=== PATIENT | male | born 1980 | race Caucasian/White ===

== ENCOUNTER 2022-02-13 22:10 | Outpatient (CLI) | payer BC, SELFPAY ==
[2022-02-13 22:22] LABS: Absolute Lymphocyte Count 2.06 X10^3/uL (0.83-4.51); Absolute Neutrophil Count 5.8 X10^3/uL (2.0-7.7); Basophil# 0.03 X10^3/uL; Basophil% 0.3 % (0-1); Eosinophil# 0.14 X10^3/uL; Eosinophils% 1.6 % (0-5); Hematocrit 50.5 % (40-54); Hemoglobin 17.2 g/dL (13.0-16.5); Lymphocyte # 2.06 X10^3/ul (0.83-4.51); Lymphocyte % 23.7 % (19-41); Mean Corp Hgb Conc 34.1 g/dL (32-36); Mean Corpuscular Hgb 29.7 pg (27.0-32.0); Mean Corpuscular Volume 87.1 fL (80-94); Mean Platelet Vol. 10.7 fl (6.2-12.0); Monocyte# 0.62 X10^3/uL; Monocyte% 7.1 % (0-10); NRBC Flagged by Analyzer 0 % (0-5); Platelet Count 260 K/mm3 (150-450); RBC Distribution Width CV 12.5 % (11.6-14.6); RBC Distribution Width SD 39.7 fl (35.1-43.9); White Blood Count 8.7 K/mm3 (4.4-11.0)
[2022-02-13 22:46] LABS: ALB/GLOB Ratio 1.1 RATIO (0.9-2.4); AST(SGOT) 22 U/L (15-37); Alanine Aminotransfer ALT/SGPT 67 U/L (16-61); Albumin, Serum 4.2 g/dL (3.2-5.0); Alkaline Phosphatase 85 U/L (45-117); Amylase 50 U/L (25-115); Anion Gap 5 (5-15); BUN 9 mg/dL (7-18); BUN/Creat Ratio 10.4 RATIO (10-20); CRP, High Sensitivity Cardiac 0.63 mg/L; Calcium,Total 9.1 mg/dL (8.5-10.1); Chloride 104 mmol/L (98-107); Creatinine, Serum 0.86 mg/dL (0.70-1.30); EST Glomerular Filtration Rate 103 mL/min (>60); Est Glom Filt Rate - Afr Amer 125 mL/min (>60); Globulin 3.7 g/dL (2.2-4.2); Glucose 100 mg/dL (74-106); Lipase 105 U/L (73-393); Protein, Total 7.9 g/dL (6.4-8.2); Sodium Level 138 mmol/L (136-145)
== END 2022-02-13 23:59 | disposition home or self-care (01) ==
PROVIDERS: PCP Family Medicine; Visit Provider Nurse Practitioner
DX: R10.11 Right upper quadrant pain (principal)
CPT/HCPCS: 80053; 82150; 83690; 85025; 86141

== ENCOUNTER 2022-03-05 21:30 | Inpatient (IN) | payer BC, SELFPAY ==
[2022-03-05 21:31] VITALS: BP 137/83; PULSE 78; RESP 16; TEMP 35.7; O2SAT 97; BMI 30.2
[2022-03-05 21:33] VITALS: BP 137/83; PULSE 78; RESP 16; TEMP 35.7; O2SAT 97
--- NOTE | 2022-03-05 21:51 | EX.ED.DYSGE1 ---
HPI History of Present Illness Chief Complaint: Abn Labs Informant: patient Narrative Narrative: Is a 41-year-old male with no significant past medical history presenting with jaundice. Patient is for the past 2 years has had intermittent episodes of right upper quadrant/right thoracic back pain that radiates to his shoulder blade. It is worse when he eats fatty or fried foods. He notes today his urine seemed darker in color and then his sclera started to turn yellow. He is scheduled for right upper quadrant ultrasound but he saw his nurse practitioner who recommended he come to the emergency room for quicker evaluation. Patient states the pain is not severe at this time and has been much worse. He notes he has not eaten much today. Denies any weight loss. Denies any significant alcohol use. Denies any history of IV drug use. Denies a history of blood transfusion. No fever or chills. No night sweats. No changes bowel habits. No other complaints at this time. [facility] Medical History (Updated 03/06/22 @ 00:[address] Sabi Lomax DO) reattached fingers of the R hand Home Medications NK 03/05/22 [History Last Taken Unknown] Allergy/AdvReac Type Severity Reaction Status Date / Time No Known Allergies Allergy Verified 03/05/22 21:33 Family History Other Bleeding disorder Diabetes Hypertension Surgical History History of appendectomy Social History Smoking Status: Unknown if ever smoked ROS ROS ED Constitutional Constitutional ED: Denies chills, fever(s) or sweats Eyes Eyes: Reports other Details: Scleral icterus ; Denies blurry vision ENT ENT ED: Denies rhinorrhea or sore throat Cardiovascular Cardiovascular: Denies chest pain Respiratory/Chest Respiratory/Chest: Denies cough or dyspnea Gastrointestinal Gastrointestinal: Reports abdominal pain and nausea; Denies constipation, diarrhea, melena or vomiting Genitourinary Genitourinary ED: Denies dysuria or hematuria Musculoskeletal Musculoskeletal: Reports back pain; Denies arthralgias or myalgias Integumentary Denies rash Neurologic Neurologic: Denies headache(s) or weakness Psychiatric Psychiatric: Denies depression EXAM Physical Exam Const Vital Signs: 03/05/22 21:31 03/05/22 21:33 03/05/22 22:03 Temperature 96.3 F L 96.3 F L Temperature Source Temporal Temporal Pulse Rate 78 78 Respiratory Rate 16 16 Respiratory Effort Normal Non-Labored Respiratory Pattern Normal Blood Pressure 137/83 H 137/83 H Blood Pressure Mean 101 101 Pulse Ox 97 97 Oxygen Delivery Method Room Air Room Air Positive well nourished and well developed General Appearance ED: well developed HEENT Reports dry mucous membranes Negative for tenderness Mouth ED: Yes dry mucous membranes Mouth: dry mucous membranes Eyes PERRL and EOMs intact bilaterally General Eye ED: Yes scleral icterus Neck no lymphadenopathy and supple Chest Wall inspection of chest normal Resp normal respiratory effort and clear to auscultation bilaterally Cardio regular rate, regular rhythm and no murmurs GI normal to inspection, nondistended, normoactive bowel sounds, non-tender and no masses GI Narrative: Negative Gagnon sign Palpation: soft; Negative for tender or guarding Back/Spine no CVA tenderness Extremity normal to inspection General Extremety ED: Negative for edema or tenderness General Extremity: Negative for edema Neuro oriented x3 and CN's II-XII intact bilaterally Sensorium / Orientation: alert Psych mental status grossly normal Skin no rashes or lesions noted and no wounds MDM MDM MDM Narrative Medical decision making narrative: Patient is evaluated for worsening jaundice as well as continued back pain. No known medical history. Has been having what sounds like biliary colic off and on for the last 2 years. Denies any other risk factors for liver disease. Lab work is remarkable for transaminitis and elevated direct and mildly elevated indirect bilirubin. [place] screen is negative. Start having infectious symptoms including fever, chills or leukocytosis. No signs of liver failure with normal platelet counts. Ultrasound is concerning for choledocholithiasis with cholelithiasis. This fits patient's clinical picture. Case is discussed with Dr. Haddad as well as Dr. Shafer (for ERCP). Patient be admitted to the hospital service. He is given a dose of Toradol in the ER. Patient is given IV fluids as he did have elevated ketones on his urine earlier today. He admits decreased p.o. intake lately. Patient admitted to [facility] in stable condition. Lab Data Attestation: I reviewed the patient's lab results. Labs: Laboratory Results - last 24 hr 03/05/22 03/05/22 03/05/22 22:00 22:00 22:00 WBC 9.4 RBC 5.08 Hgb 15.1 Hct 44.5 MCV 87.6 MCH 29.7 MCHC 33.9 RDW Std Deviation 41.1 RDW Coeff of Chan 12.9 Plt Count 219 MPV 10.6 Immature Gran % (Auto) 0.300 Neut % (Auto) 79.1 H Lymph % (Auto) 10.6 L [place] % (Auto) 8.5 Eos % (Auto) 1.2 Baso % (Auto) 0.3 Absolute Neuts (auto) 7.4 Absolute Lymphs (auto) 1.00 Nucleated RBC % 0 Sodium 138 Potassium 3.5 Chloride 105 Carbon Dioxide 26.0 Anion Gap 7 BUN 11 Creatinine 0.91 Estim Creat Clear Calc 124.20 Est GFR (MDRD) Af Amer 118 Est GFR (MDRD) Non-Af 98 BUN/Creatinine Ratio 12.1 Glucose 96 Calcium 8.9 Ferritin 792 H Total Bilirubin 7.40 H Direct Bilirubin 4.56 H AST 270 H ALT 691 H Alkaline Phosphatase 173 H Total Protein 7.3 Albumin 3.7 Globulin 3.6 Lipase 134 Monoscreen Negative Radiography Diagnostic Testing: Clinical Impression(s) from Imaging Studies Gallbladder Ultrasound 03/05/22 21:52 IMPRESSION: Choledocholithiasis and cholelithiasis. Mildly dilated proximal common duct at the nickie. Incompletely visualized pancreas. Electronically Signed: Debbie Kyle MD at 23:35 EDT Reading Location ID and State: [address] [place] [address] Tel , Service support , ADDENDUM: 03/05/22 [id number] IMPRESSION: Choledocholithiasis and cholelithiasis. Mildly dilated proximal common duct at the nickie. Incompletely visualized pancreas. N.B. : Tex Gutierrez MD, confirmed on 03/05/2022 23:41:49 (ET) that the healthcare facility has received the radiology report. Electronically Signed: Debbie Kyle MD at 23:35 EDT Reading Location ID and State: [facility] / [place] Tel , Service support , Discharge Plan Triage Chief Complaint: Abn Labs ED Provider: Sabi Lomax Dx/Rx/DC Orders Clinical Impression: Jaundice, Choledocholithiasis with cholecystitis Primary Care Provider: Jessica Ricardo NP Disposition Disposition: Acute Care Hospital [facility]
--- NOTE | 2022-03-05 21:52 | US_ITS ---
ACR Level 3 findings have been noted. An addendum which confirms receipt of the report will follow. EXAM: US ABDOMEN LIMITED, RIGHT UPPER QUADRANT CLINICAL INDICATION: PAIN, jaundice TECHNIQUE: Real-time ultrasound of the right upper quadrant with image documentation. This report was created using Switchcam report generation technology. COMPARISON: None. FINDINGS: LIVER: The liver is 17.5 cm in length, upper limits of normal. There is normal echotexture. No intrahepatic biliary ductal dilation. GALLBLADDER: Small fold in the distal gallbladder. Mildly distended gallbladder with one versus 2 shadowing stones in the fundus, overall size 2.4 cm x 1.9 cm x 1.2 cm, presumed cholelithiasis. The gallbladder is 10 cm in length. Normal 2.8 mm gallbladder wall. No pericholecystic fluid. Negative sonographic Gagnon''s sign. COMMON BILE DUCT: Mildly dilated common duct measuring 1.1 cm at the nickie. Choledocholithiasis with 1 cm x 0.9 cm stone in the proximal common duct just inferior to the nickie. PANCREAS: The pancreas is largely obscured by bowel gas, a small section of the head is seen. RIGHT KIDNEY: Right kidney 11.5 cm x 7.2 cm x 6.5 cm. No hydronephrosis. No shadowing calculus. No focal lesion or perinephric collection is demonstrated. US/Gallbladder IMPRESSION: Choledocholithiasis and cholelithiasis. Mildly dilated proximal common duct at the nickie. Incompletely visualized pancreas. Electronically Signed: Debbie Kyle MD at 23:35 EDT ,
[2022-03-05] MEDS: 0.9% Normal Saline 1,000 ML 999 ML IV (22:38)
[2022-03-05 22:41] LABS: Absolute Neutrophil Count 7.4 X10^3/uL (2.0-7.7); Basophil# 0.03 X10^3/uL; Basophil% 0.3 % (0-1); Eosinophil# 0.11 X10^3/uL; Eosinophils% 1.2 % (0-5); Hematocrit 44.5 % (40-54); Hemoglobin 15.1 g/dL (13.0-16.5); Lymphocyte % 10.6 % (19-41); Mean Corp Hgb Conc 33.9 g/dL (32-36); Mean Corpuscular Hgb 29.7 pg (27.0-32.0); Mean Corpuscular Volume 87.6 fL (80-94); Mean Platelet Vol. 10.6 fl (6.2-12.0); Monocyte% 8.5 % (0-10); NRBC Flagged by Analyzer 0 % (0-5); Neutrophil # 7.43 X10^3/uL (2.7-7.7); Neutrophil % 79.1 % (47-70); Platelet Count 219 K/mm3 (150-450); RBC Distribution Width CV 12.9 % (11.6-14.6); RBC Distribution Width SD 41.1 fl (35.1-43.9); Red Blood Count 5.08 M/mm3 (4.6-6.2); White Blood Count 9.4 K/mm3 (4.4-11.0)
[2022-03-05 23:04] LABS: AST(SGOT) 270 U/L (15-37); Alanine Aminotransfer ALT/SGPT 691 U/L (16-61); Albumin, Serum 3.7 g/dL (3.2-5.0); Alkaline Phosphatase 173 U/L (45-117); Anion Gap 7 (5-15); BUN 11 mg/dL (7-18); BUN/Creat Ratio 12.1 RATIO (10-20); Bilirubin, Direct 4.56 mg/dL (0.00-0.30); Calcium,Total 8.9 mg/dL (8.5-10.1); Chloride 105 mmol/L (98-107); Creatinine, Serum 0.91 mg/dL (0.70-1.30); EST Glomerular Filtration Rate 98 mL/min (>60); Est Glom Filt Rate - Afr Amer 118 mL/min (>60); Ferritin 792 ng/mL (26-388); Globulin 3.6 g/dL (2.2-4.2); Glucose 96 mg/dL (74-106); Lipase 134 U/L (73-393); Potassium 3.5 mmol/L (3.5-5.1); Protein, Total 7.3 g/dL (6.4-8.2); Sodium Level 138 mmol/L (136-145)
[2022-03-05 23:06] LABS: Internal QC Validated? YES +Cl - CLEAR BKGD; Monotest Negative (Negative)
[2022-03-06] VITALS (11 sets, daily range): BP systolic 114–153; BP diastolic 66–87; PULSE 61–98; RESP 14–19; TEMP 36.3–37.1; O2SAT 96–99; BMI 29.7
--- NOTE | 2022-03-06 00:16 | PCM.HP.STD ---
Documented by User: VALDEZ France 03/06/22 00:35 HPI - General General Date of Admission: 03/06/22 Date of Service: 03/06/22 Chief Complaint: Jaundice HPI Narrative ODALYS CHANCE, is a 41 M who presents with complaints of jaundice and mild right upper quadrant pain. Patient states that he has experienced intermittent biliary colic over the past two years and has been receiving outpatient workup. Patient denies any other medical history. patient reports this is his first time experiencing jaundice. [facility] Medical History reattached fingers of the R hand Home Medications NK 03/05/22 [History Last Taken Unknown] Allergy/AdvReac Type Severity Reaction Status Date / Time No Known Allergies Allergy Verified 03/05/22 21:33 Family History Other Bleeding disorder Diabetes Hypertension Surgical History History of appendectomy Social History (Updated 03/06/22 @ 00:21 by VALDEZ France) Smoking Status: Unknown if ever smoked alcohol intake: current alcohol intake frequency: a few times a month ROS Constitutional Constitutional: Denies anorexia, chills, fatigue, fever(s) or weakness Cardiovascular Cardiovascular: Denies chest pain, edema, palpitations or syncope Respiratory/Chest Respiratory/Chest: Denies cough, shortness of breath at rest, shortness of breath with exertion or wheezing Gastrointestinal Gastrointestinal: Reports abdominal pain; Denies constipation, diarrhea, nausea or vomiting Genitourinary Genitourinary: Denies dysuria Musculoskeletal Musculoskeletal: Denies back pain, extremity pain, joint pain or joint stiffness Integumentary Integumentary: Reports jaundice; Denies dry skin Neurologic Neurologic: Denies abnormal gait, abnormal speech, confusion, dizziness or focal weakness Psychiatric Psychiatric: Denies anxiety or depression Endocrine Endocrinology: Denies change in body appearance Hematologic/Lymphatic Hematologic/Lymphatic: Denies anemia, easy bleeding or easy bruising Vital Signs Vital Signs Vital Signs: 03/05/22 21:31 03/05/22 21:33 03/05/22 22:03 Temperature 96.3 F L 96.3 F L Temperature Source Temporal Temporal Pulse Rate 78 78 Respiratory Rate 16 16 Respiratory Effort Normal Non-Labored Respiratory Pattern Normal Blood Pressure 137/83 H 137/83 H Blood Pressure Mean 101 101 Pulse Ox 97 97 Oxygen Delivery Method Room Air Room Air Weight Weight: 235 lb Body Mass Index (BMI) 30.2 Physical Exam Const alert, oriented x3 and no apparent distress General Appearance: cooperative HEENT normocephalic and head/scalp atraumatic Eyes conjunctivae normal Eyes Narrative: B/L scleral icterus Neck no lymphadenopathy and supple General: trachea midline Resp normal respiratory effort, normal air movement and clear to auscultation bilaterally Cardio regular rate, regular rhythm, S1 normal heart sound, S2 normal heart sound and peripheral pulses 2+ throughout GI normal to inspection, nondistended, normoactive bowel sounds and soft to palpation Palpation: tender RUQ Extremity normal capillary refill and no clubbing, cyanosis or edema General Extremity: no tenderness to palpation of joints or extremities Skin General Skin Exam: no breakdown, turgor normal and jaundice Lesions: no lesions Rashes: no rashes Neuro no focal motor deficits and no sensory deficits noted Motor Exam: Negative for general weakness Psych thought process normal, cooperative and affect normal Appearance: appropriate Results Lab / Micro Data Result Diagrams: 03/05/22 22:00 03/05/22 22:00 Labs: Laboratory Results - last 24 hr 03/05/22 22:00: WBC 9.4, RBC 5.08, Hgb 15.1, Hct 44.5, MCV 87.6, MCH 29.7, MCHC 33.9, RDW Std Deviation 41.1, RDW Coeff of Chan 12.9, Plt Count 219, MPV 10.6, Immature Gran % (Auto) 0.300, Neut % (Auto) 79.1 H, Lymph % (Auto) 10.6 L, [place] % (Auto) 8.5, Eos % (Auto) 1.2, Baso % (Auto) 0.3, Absolute Neuts (auto) 7.4, Absolute Lymphs (auto) 1.00, Nucleated RBC % 0 03/05/22 22:00: Sodium 138, Potassium 3.5, Chloride 105, Carbon Dioxide 26.0, Anion Gap 7, BUN 11, Creatinine 0.91, Estim Creat Clear Calc 124.20, Est GFR (MDRD) Af Amer 118, Est GFR (MDRD) Non-Af 98, BUN/Creatinine Ratio 12.1, Glucose 96, Calcium 8.9, Ferritin 792 H, Total Bilirubin 7.40 H, Direct Bilirubin 4.56 H, AST 270 H, ALT 691 H, Alkaline Phosphatase 173 H, Total Protein 7.3, Albumin 3.7, Globulin 3.6, Lipase 134 03/05/22 22:00: Monoscreen Negative Radiology Impression Gallbladder Ultrasound 03/05/22 21:52 IMPRESSION: Choledocholithiasis and cholelithiasis. Mildly dilated proximal common duct at the nickie. Incompletely visualized pancreas. Electronically Signed: Debbie Kyle MD at 23:35 EDT , ADDENDUM: 03/05/22 [id number] IMPRESSION: Choledocholithiasis and cholelithiasis. Mildly dilated proximal common duct at the nickie. Incompletely visualized pancreas. N.B. : Tex Gutierrez MD, confirmed on 03/05/2022 23:41:49 (ET) that the healthcare facility has received the radiology report. Electronically Signed: Debbie Kyle MD at 23:35 EDT , Assessment & Plan Assessment/Plan (1) Choledocholithiasis with cholecystitis: (2) Jaundice: (3) RUQ abdominal pain: PLAN: 1. RUQ abdominal pain and jaundice, likely secondary to choledocholithiasis with cholecystitis -Admit to med surg -Consult GI, case discussed with Dr. Shafer by ER physician -Consult General Surgery, case discussed with Dr. Haddad by ER physician -CBC and CMP daily -Patient NPO -PT/INR ordered for am -IV NS 125ml/hr -PRN toradol and morphine ordered for pain management -Gallbladder ultrasound demonstrates Choledocolithiasis and cholelithiasis. Mildly dilated proximal common duct at the nickie. Incompletely visualized pancreas. -Negative monoscreen -Viral hepatitis panel pending 2. Elevated Liver Enzymes -See #1 -Daily CMP ordered DVT prophylaxis- SCD's This patient was seen by VALDEZ France under the supervision of Dr. Davis. 30 minutes was spent in the clinical coordination of this patient's care. Documented by User: Dr. Ulises Davis MD 03/06/22 00:52 HPI - General General Date of Admission: 03/06/22 [facility] Medical History reattached fingers of the R hand Home Medications NK 03/05/22 [History Last Taken Unknown] Allergy/AdvReac Type Severity Reaction Status Date / Time No Known Allergies Allergy Verified 03/05/22 21:33 Family History Other Bleeding disorder Diabetes Hypertension Surgical History History of appendectomy Social History (Updated 03/06/22 @ 00:21 by VALDEZ France) Smoking Status: Unknown if ever smoked alcohol intake: current alcohol intake frequency: a few times a month Results Lab / Micro Data Result Diagrams: 03/05/22 22:00 03/05/22 22:00 Charges/Coding Addendum Addendum: Patient was seen and examined independently. I agree with assessment and plan by VALDEZ France. Patient is a 41-year-old male with a significant history of former tobacco abuse and appendectomy who presents emergency department with a 3-week history of progressively worsening jaundice. Associated with his symptoms is sclera icterus; dark urine and anorexia. Further, he reports back pain; at his entire back, across his shoulder blades and right flank pain. Also he reports a pain across his entire chest that increases with lying down. Physical exam: General: Well-nourished, well-developed. Head: Normocephalic, atraumatic, no tenderness Eyes: Mild scleral icterus. Vision is grossly intact. EOMI ENT, no trauma, moist mucous membranes, no rhinorrhea Neck: Nontender, full range of motion, no spinal tenderness, deformities, step-off CVS: Regular rate and rhythm. S1-S2 present. No murmur, gallop or rub. Respiratory : clear to auscultation bilaterally, chest wall nontender, no wheezing Abdomen: Soft, nontender, nondistended, normal bowel sounds, no masses : Deferred Back: Nontender, no CVA tenderness, no midline spinal tenderness, deformities, step-offs Extremities: Nontender full range of motion, no trauma Skin: Mild jaundice. Normal color, no trauma, abrasions Neuro: Alert, oriented, cranial nerves II through XII grossly intact. Psychiatry: Normal mood. Normal affect. Not depressed. Not anxious. Acute choledocholithiasis and cholelithiasis US [place] was visualized and independently interpreted and agree with radiologist interpreattion of Choledocholithiasis and cholelithiasis. Mildly dilated proximal common duct at the nickie. Review of ED labs showed elevated ferritin of 792; total bilirubin was 7.4. Diarrhea bilirubin was 4.56. Of note his bilirubin on 02/13/2022 was 2.10. On presentation AST was elevated at 270; ALT was elevated at 691; alkaline phosphatase was elevated at 173. Review of record showed that on 02/13/2022 his AST was 22; ALT was 67 and alkaline phosphatase was 85. Acute hepatitis panel ordered emergency department is pending. [place] screen was negative. Supportive treatment with IV fluids; IV Zofran; IV toradol and IV morphine. Emergency Department doctor discussed the case with general surgery and GI. General surgery and GI consult. N.p.o. after midnight. CBC showed normal white count; no bandemia. Patient has neutrophilia with neutrophil count of 79.1 percent; and lymphopenia with lymphocyte count of 10.6 percent. Trend CBC and CMP DVT prophylaxis: SCD ordered. Visit Charges Inpatient E&M: 32279 Init Hosp L3
--- NOTE | 2022-03-06 00:28 | ED.RN ---
PATIENT TAKEN UP BEFORE THIS NURSE ABLE TO PULL TORADOL
[2022-03-06] MEDS: 0.9% Saline Lock 10 ML Syringe IV (01:23)
[2022-03-06] MEDS: Ketorolac 15 MG/ML Vial IV (01:24)
[2022-03-06] MEDS: 0.9% Normal Saline 1,000 ML 125 ML IV ×4 (01:28→18:37)
--- NOTE | 2022-03-06 06:00 | EKG12_ITS ---
Test Reason : AM EKG PRE OP Blood Pressure : / mmHG Vent. Rate : 063 BPM Atrial Rate : 063 BPM P-R Int : 140 ms QRS Dur : 096 ms QT Int : 410 ms P-R-T Axes : 043 074 035 degrees QTc Int : 419 ms Normal sinus rhythm with sinus arrhythmia Normal ECG Confirmed by GREGORIA HO, CLARA ([id number]), city editor MACKENZIE BENITEZ ([id number]) on 03/07/2022 10:03:07 AM Referred By: Confirmed By:CLARA KINNEY MD
[2022-03-06 06:18] LABS: Absolute Lymphocyte Count 1.16 X10^3/uL (0.83-4.51); Absolute Neutrophil Count 4.2 X10^3/uL (2.0-7.7); Basophil# 0.02 X10^3/uL; Basophil% 0.3 % (0-1); Eosinophil# 0.16 X10^3/uL; Eosinophils% 2.5 % (0-5); Hematocrit 42.3 % (40-54); Hemoglobin 14.5 g/dL (13.0-16.5); Lymphocyte # 1.16 X10^3/ul (0.83-4.51); Lymphocyte % 18.5 % (19-41); Mean Corp Hgb Conc 34.3 g/dL (32-36); Mean Corpuscular Hgb 29.7 pg (27.0-32.0); Mean Corpuscular Volume 86.7 fL (80-94); Monocyte# 0.72 X10^3/uL; Monocyte% 11.5 % (0-10); NRBC Flagged by Analyzer 0 % (0-5); Neutrophil # 4.21 X10^3/uL (2.7-7.7); Platelet Count 181 K/mm3 (150-450); RBC Distribution Width CV 12.9 % (11.6-14.6); RBC Distribution Width SD 41.1 fl (35.1-43.9); Red Blood Count 4.88 M/mm3 (4.6-6.2); White Blood Count 6.3 K/mm3 (4.4-11.0)
[2022-03-06 06:26] LABS: Prothrombin Time (Protime)PT. 12.8 SECONDS (11.7-14.9)
[2022-03-06 07:02] LABS: ALB/GLOB Ratio 0.9 RATIO (0.9-2.4); AST(SGOT) 163 U/L (15-37); Alanine Aminotransfer ALT/SGPT 520 U/L (16-61); Albumin, Serum 3.1 g/dL (3.2-5.0); Alkaline Phosphatase 173 U/L (45-117); Anion Gap 6 (5-15); BUN 8 mg/dL (7-18); BUN/Creat Ratio 10.3 RATIO (10-20); Calcium,Total 8.3 mg/dL (8.5-10.1); Chloride 109 mmol/L (98-107); Creatinine, Serum 0.78 mg/dL (0.70-1.30); EST Glomerular Filtration Rate 116 mL/min (>60); Est Glom Filt Rate - Afr Amer 141 mL/min (>60); Globulin 3.3 g/dL (2.2-4.2); Glucose 81 mg/dL (74-106); Potassium 3.7 mmol/L (3.5-5.1); Protein, Total 6.4 g/dL (6.4-8.2); Sodium Level 138 mmol/L (136-145)
[2022-03-06] MEDS: Ondansetron 4 MG/2 ML Vial IV (07:36)
--- NOTE | 2022-03-06 07:59 | PCM.CONS.GEN ---
Assessment & Plan Assessment/Plan (1) Choledocholithiasis with cholecystitis: PLAN: Obstructive jaundice secondary to choledocholithiasis. He should undergo an ERCP with stone removal and possible stent placement. After that he should have a cholecystectomy. I will order a CT scan of the abdomen pelvis with prior to him undergoing an ERCP to get a look at his pancreas. He was explained alternatives, risk, benefits including not withstanding bleeding, infection, sepsis, perforation, need for emergency or . Have an ASA of 3. Recommend to keep n.p.o. No need for antibiotics at this time he will get it prior to his ERCP. He is not showing any signs at this time of a sending cholangitis. HPI Consult Data Date of Consult: 03/06/22 HPI Narrative HPI Narrative: ODALYS CHANCE, is a 41 M who presentsFrom home with worsening abdominal pain. He has a past medical history of gastroesophageal reflux disease resulting in esophageal stricture and food bolus status post emergent EGD with food impaction removal. He does not take any medicines for reflux disease. Over the last couple weeks he has been experiencing intermittent right upper quadrant pain. He did have lab work that showed elevated bilirubin of 2.1. He came into the hospital yesterday with worsening jaundice. He was covered to have a bilirubin of 7.4 and an AST and ALT of 163 and 520 and alkaline phosphatase 173. His albumin was 3.1. He does not take any medicines on a daily basis he has no history of blood transfusions. He has no other risk factors for acute hepatitis. He has no previous history of alcoholism or cirrhosis. He had an ultrasound in the ED that did not show common bile duct dilation of 1.1 cm with a 1 cm stone at the level of the nickie hepatis. [facility] Medical History Ex-smoker reattached fingers of the R hand Home Medications NK 03/05/22 [History Last Taken Unknown] Allergy/AdvReac Type Severity Reaction Status Date / Time No Known Allergies Allergy Verified 03/05/22 21:33 Family History Other Bleeding disorder Diabetes Hypertension Surgical History History of appendectomy Social History (Updated 03/06/22 @ 00:21 by Drea Landon NP-C) Smoking Status: Former smoker alcohol intake: current alcohol intake frequency: a few times a month ROS Review of Systems ROS Unobtainable: other Constitutional Constitutional: Denies fatigue, fever(s), poor appetite, weight gain or weight loss ENT HEENT: Denies mouth lesions Cardiovascular Cardiovascular: Denies abdominal bloating, abdominal edema or abdominal pain Respiratory/Chest Respiratory/Chest: Denies change in mental status, change in phlegm color, chest congestion or chest tightness Gastrointestinal Gastrointestinal: Reports abdominal pain and heartburn Genitourinary Genitourinary: Denies abdominal discomfort, burning urination or itching Musculoskeletal Musculoskeletal: Reports as per HPI; Denies muscle weakness or myalgias Integumentary Integumentary: Denies jaundice Neurologic Neurologic: Denies lack of coordination or weakness Psychiatric Psychiatric: Denies confusion, depression, memory loss, mood swings, paranoia or suicidal ideation Endocrine Endocrinology: Denies systems reviewed and no addt'l complaints, except as documented Hematologic/Lymphatic Hematologic/Lymphatic: Denies anemia, easy bleeding, easy bruising or lymphadenopathy Allergic/Immunologic Allergic/Immunologic: Denies systems reviewed and no addt'l complaints, except as documented Physical Exam Const alert General Appearance: cooperative Orientation / Consciousness: oriented to person HEENT hearing grossly normal bilaterally Head and Scalp: normal to inspection Face and Sinus: face symmetric Nose: external nose normal Mouth: oral and palatal mucosa normal Eyes conjunctivae normal General Eye: normal appearance of both eyes Neck full ROM General: normal visual inspection Lymph Lymphatic: no lymphadenopathy noted Chest inspection of chest normal and palpation of chest normal Chest: symmetrical chest wall rise Resp normal respiratory effort Effort and Inspection: able to speak in complete sentences Cardio regular rate GI non-distended Percussion: normal to percussion Rectal Exam: deferred Neuro Speech: speech normal Gait (Neuro): normal gait Lab / Micro Data Result Diagrams: 03/06/22 06:03 03/06/22 06:03 Labs: Laboratory Results - last 24 hr 03/05/22 22:00: WBC 9.4, RBC 5.08, Hgb 15.1, Hct 44.5, MCV 87.6, MCH 29.7, MCHC 33.9, RDW Std Deviation 41.1, RDW Coeff of Chan 12.9, Plt Count 219, MPV 10.6, Immature Gran % (Auto) 0.300, Neut % (Auto) 79.1 H, Lymph % (Auto) 10.6 L, Worth % (Auto) 8.5, Eos % (Auto) 1.2, Baso % (Auto) 0.3, Absolute Neuts (auto) 7.4, Absolute Lymphs (auto) 1.00, Nucleated RBC % 0 03/05/22 22:00: Sodium 138, Potassium 3.5, Chloride 105, Carbon Dioxide 26.0, Anion Gap 7, BUN 11, Creatinine 0.91, Estim Creat Clear Calc 124.20, Est GFR (MDRD) Af Amer 118, Est GFR (MDRD) Non-Af 98, BUN/Creatinine Ratio 12.1, Glucose 96, Calcium 8.9, Ferritin 792 H, Total Bilirubin 7.40 H, Direct Bilirubin 4.56 H, AST 270 H, ALT 691 H, Alkaline Phosphatase 173 H, Total Protein 7.3, Albumin 3.7, Globulin 3.6, Lipase 134 03/05/22 22:00: Monoscreen Negative 03/06/22 06:03: WBC 6.3, RBC 4.88, Hgb 14.5, Hct 42.3, MCV 86.7, MCH 29.7, MCHC 34.3, RDW Std Deviation 41.1, RDW Coeff of Chan 12.9, Plt Count 181, MPV 10.0, Immature Gran % (Auto) 0.200, Neut % (Auto) 67.0, Lymph % (Auto) 18.5 L, Worth % (Auto) 11.5 H, Eos % (Auto) 2.5, Baso % (Auto) 0.3, Absolute Neuts (auto) 4.2, Absolute Lymphs (auto) 1.16, Nucleated RBC % 0 03/06/22 06:03: PT 12.8, INR 1.0 03/06/22 06:03: Sodium 138, Potassium 3.7, Chloride 109 H, Carbon Dioxide 23.0, Anion Gap 6, BUN 8, Creatinine 0.78, Estim Creat Clear Calc 144.90, Est GFR (MDRD) Af Amer 141, Est GFR (MDRD) Non-Af 116, BUN/Creatinine Ratio 10.3, Glucose 81, Calcium 8.3 L, Total Bilirubin 7.30 H, AST 163 H, ALT 520 H, Alkaline Phosphatase 173 H, Total Protein 6.4, Albumin 3.1 L, Globulin 3.3, Albumin/Globulin Ratio 0.9 Radiology Impression Gallbladder Ultrasound 03/05/22 21:52 IMPRESSION: Choledocholithiasis and cholelithiasis. Mildly dilated proximal common duct at the nickie. Incompletely visualized pancreas. Electronically Signed: Debbie Kyle MD at 23:35 EDT Reading Location ID and State: [facility] / [place] Tel , Service support , ADDENDUM: 03/05/22 2348 IMPRESSION: Choledocholithiasis and cholelithiasis. Mildly dilated proximal common duct at the nickie. Incompletely visualized pancreas. N.B. : Tex Gutierrez MD, confirmed on 03/05/2022 23:41:49 (ET) that the healthcare facility has received the radiology report. Electronically Signed: Debbie Kyle MD at 23:35 EDT , Charges/Coding Visit Charges Inpatient E&M: 63024 Init Hosp L2
--- NOTE | 2022-03-06 08:51 | PCM.HP.STD ---
HPI - General General Date of Admission: 03/06/22 Chief Complaint: Jaundice HPI Narrative ODALYS CHANCE, is a 41 M who presented to [facility] last evening after noting yellowing of his eyes and skin the day prior. He states that this was accompanied by some significant right upper quadrant abdominal pain. This abdominal pain has been present for the last 1 month. He has been under work-up through his primary care provider for possible gallbladder source and has been working through insurance approval for a right upper quadrant ultrasound. His is present at bedside states that he has dealt with these pains on and off for about the last 3 years. Patient's ER work-up yesterday was notable for CMP that showed hyperbilirubinemia with a total bili of greater than 7, CBC with normal white count but left shift, and gallbladder ultrasound that demonstrated choledocholithiasis with a 1 x 0.9 cm stone lodged in the common bile duct. Patient was admitted to the hospitalist service and GI has been consulted for ERCP. This procedure is due to take place at 1500 this afternoon. For his part, patient states that his abdominal pain is largely resolved, but he is experiencing more nausea this morning. Patient's past surgical history includes EGD and laparoscopic appendectomy. [facility] Medical History Ex-smoker reattached fingers of the R hand Home Medications NK 03/05/22 [History Last Taken Unknown] Allergy/AdvReac Type Severity Reaction Status Date / Time No Known Allergies Allergy Verified 03/05/22 21:33 Family History Other Bleeding disorder Diabetes Hypertension Surgical History History of appendectomy Social History (Updated 03/06/22 @ 00:21 by VALDEZ [place]) Smoking Status: Former smoker alcohol intake: current alcohol intake frequency: a few times a month Vital Signs Vital Signs Vital Signs: 03/05/22 21:31 03/05/22 21:33 03/05/22 22:03 Temperature 96.3 F L 96.3 F L Temperature Source Temporal Temporal Pulse Rate 78 78 Respiratory Rate 16 16 Respiratory Effort Normal Non-Labored Respiratory Pattern Normal Blood Pressure 137/83 H 137/83 H Blood Pressure Mean 101 101 Blood Pressure Source Blood Pressure Position Blood Pressure Location Pulse Ox 97 97 Oxygen Delivery Method Room Air Room Air 03/06/22 00:25 03/06/22 00:44 03/06/22 07:20 Temperature 97.7 F L 98.5 F Temperature Source Temporal Oral Pulse Rate 88 61 Respiratory Rate 19 H 16 Respiratory Effort Respiratory Pattern Blood Pressure 134/74 H 131/82 H Blood Pressure Mean 94 98 Blood Pressure Source Monitor Blood Pressure Position Semi-Fowlers Blood Pressure Location Left Arm Pulse Ox 99 99 96 Oxygen Delivery Method Room Air Room Air Room Air 03/06/22 07:21 Temperature 97.7 F L Temperature Source Oral Pulse Rate 71 Respiratory Rate 18 Respiratory Effort Respiratory Pattern Blood Pressure 123/76 H Blood Pressure Mean 91 Blood Pressure Source Monitor Blood Pressure Position Semi-Fowlers Blood Pressure Location Right Arm Pulse Ox 98 Oxygen Delivery Method Room Air Weight Weight: 231 lb 11.2 oz Body Mass Index (BMI) 29.7 Physical Exam Const alert, oriented x3 and no apparent distress General Appearance: cooperative Resp normal respiratory effort GI soft to palpation and non-distended GI Narrative: Well-healed port site scars are largely obscured by patient's hirsute anterior abdominal wall Palpation: tender RUQ and Gagnon's sign Results Lab / Micro Data Result Diagrams: 03/06/22 06:03 03/06/22 06:03 Labs: Laboratory Results - last 24 hr 03/05/22 22:00: WBC 9.4, RBC 5.08, Hgb 15.1, Hct 44.5, MCV 87.6, MCH 29.7, MCHC 33.9, RDW Std Deviation 41.1, RDW Coeff of Chan 12.9, Plt Count 219, MPV 10.6, Immature Gran % (Auto) 0.300, Neut % (Auto) 79.1 H, Lymph % (Auto) 10.6 L, Josephine % (Auto) 8.5, Eos % (Auto) 1.2, Baso % (Auto) 0.3, Absolute Neuts (auto) 7.4, Absolute Lymphs (auto) 1.00, Nucleated RBC % 0 03/05/22 22:00: Sodium 138, Potassium 3.5, Chloride 105, Carbon Dioxide 26.0, Anion Gap 7, BUN 11, Creatinine 0.91, Estim Creat Clear Calc 124.20, Est GFR (MDRD) Af Amer 118, Est GFR (MDRD) Non-Af 98, BUN/Creatinine Ratio 12.1, Glucose 96, Calcium 8.9, Ferritin 792 H, Total Bilirubin 7.40 H, Direct Bilirubin 4.56 H, AST 270 H, ALT 691 H, Alkaline Phosphatase 173 H, Total Protein 7.3, Albumin 3.7, Globulin 3.6, Lipase 134 03/05/22 22:00: Monoscreen Negative 03/06/22 06:03: WBC 6.3, RBC 4.88, Hgb 14.5, Hct 42.3, MCV 86.7, MCH 29.7, MCHC 34.3, RDW Std Deviation 41.1, RDW Coeff of Chan 12.9, Plt Count 181, MPV 10.0, Immature Gran % (Auto) 0.200, Neut % (Auto) 67.0, Lymph % (Auto) 18.5 L, Josephine % (Auto) 11.5 H, Eos % (Auto) 2.5, Baso % (Auto) 0.3, Absolute Neuts (auto) 4.2, Absolute Lymphs (auto) 1.16, Nucleated RBC % 0 03/06/22 06:03: PT 12.8, INR 1.0 03/06/22 06:03: Sodium 138, Potassium 3.7, Chloride 109 H, Carbon Dioxide 23.0, Anion Gap 6, BUN 8, Creatinine 0.78, Estim Creat Clear Calc 144.90, Est GFR (MDRD) Af Amer 141, Est GFR (MDRD) Non-Af 116, BUN/Creatinine Ratio 10.3, Glucose 81, Calcium 8.3 L, Total Bilirubin 7.30 H, AST 163 H, ALT 520 H, Alkaline Phosphatase 173 H, Total Protein 6.4, Albumin 3.1 L, Globulin 3.3, Albumin/Globulin Ratio 0.9 Radiology Impression Gallbladder Ultrasound 03/05/22 21:52 IMPRESSION: Choledocholithiasis and cholelithiasis. Mildly dilated proximal common duct at the nickie. Incompletely visualized pancreas. Electronically Signed: Debbie Kyle MD at 23:35 EDT , ADDENDUM: 03/05/22 2348 IMPRESSION: Choledocholithiasis and cholelithiasis. Mildly dilated proximal common duct at the nickie. Incompletely visualized pancreas. N.B. : Tex Gutierrez MD, confirmed on 03/05/2022 23:41:49 (ET) that the healthcare facility has received the radiology report. Electronically Signed: Debbie Kyle MD at 23:35 EDT , Assessment & Plan Assessment/Plan (1) Choledocholithiasis with cholecystitis: PLAN: This is a 41-year-old male who has been diagnosed with choledocholithiasis with cholecystitis. His CMP this morning demonstrates some marginal improvements, however, a very large gallstone was visualized within the common bile duct and spontaneous passage is improbable. He is due for ERCP with stone extraction later this afternoon. Discussed with him the need to follow this procedure up with cholecystectomy to mitigate his risk for recurrence. He expresses understanding of this rationale and wishes to proceed as described. We will therefore plan for laparoscopic cholecystectomy with possible intraoperative cholangiogram tomorrow, 03/07/2022. Patient should be n.p.o. after midnight. Charges/Coding Visit Charges Inpatient E&M: 40908 Init Hosp L2
--- NOTE | 2022-03-06 09:34 | CASEMGMT ---
HOLLY ELLER Assessment: Face to Face with pt for initial transition planning/care coordination assessment. RN CM introduced self and role at [facility], pt voices understanding and consents to assessment. Pt is A/O x4 and answers all questions appropriately at this time. Pt sitting up in chair in no distress. Care providers, pharmacy, and demographics verified/updated. Admitting Dx: jaundice/cholelithiasis PCP:Jessica Ricardo [facility] Specialists:Pt denies. Preferred Pharmacy: [facility] Insurance: [employer] Prescription Benefit: yes LW/HPOA: Pt denies having a LW/DPOA and denies need for info regarding AD. LNOK: Sommer Randolph, ; Clara Randolph, mother Living Arrangements: Pt lives with and 5 children in a single story house with 2 steps to enter. Pt reports he is I in ADL's and denies concerns at home. Transportation: Pt drives self and denies concerns with transportation. DME/HHC/SNF: Pt denies having any DME in the home, hx of HHC or SNF stays. Pt states no concerns with going home at time of dc. Pt states no further concerns/needs. CM to follow. Advised pt to ask CM if any further question/concerns/needs arise, voices understanding. Pt Goal: Home Plan: Home
--- NOTE | 2022-03-06 11:25 | PCM.HOSP.N ---
Hospitalist Note Mr. Randolph is a 41-year-old white male who presented to the emergency department early this morning from home with worsening abdominal pain. He indicated on presentation he had been experiencing intermittent right upper quadrant pain for approximately 2 weeks. He presented to the emergency department yesterday with worsening pain and jaundice. He was noted to have a bilirubin of 7.4 and an AST and ALT of 163 and 120 respectively. His alkaline phosphatase was 173. In the emergency department an ultrasound was done that showed choledocholithiasis with cholelithiasis and a mildly dilated proximal common duct at the nickie and an incompletely visualized pancreas. He was placed on IV fluids, pain medication and the case was discussed with both GI and general surgery. He was evaluated by GI early this morning and the plan is for him to undergo an ERCP with stone removal and possible stent placement and then cholecystectomy following. A CT scan of the abdomen pelvis was ordered to better visualize his pancreas prior to the ERCP. General surgery has also evaluated the patient and the plan is for laparoscopic cholecystectomy tomorrow morning and the patient has been made n.p.o. after midnight.
--- NOTE | 2022-03-06 16:41 | RAD_ITS ---
STUDY: ERCP. REASON FOR EXAM: Male, 41 years old. ABD PAIN FLUOROSCOPY TIME (if supplied): ( 47 seconds. ) minutes/seconds. 14 images were submitted. TECHNIQUE: An ERCP was performed by the communications systems engineer. Imaging was submitted. COMPARISON: None. FINDINGS: There is evidence of a dilated common bile duct as well as central intrahepatic biliary ducts. A balloon catheter is seen within the common bile duct. A stent was placed. RAD/ERCP Biliary/Pancreas IMPRESSION: Placement of a biliary stent. Electronically Signed: Ye Galicia MD at 9:00 EDT ,
--- NOTE | 2022-03-06 18:15 | OP.ERCP_ITS ---
Patient Name: Enoch Randolph Procedure Date: 03/06/2022 4:17 PM Date of : 1980 Age: 41 Procedure: ERCP Indications: Jaundice Providers: Chin Shafer DO Medicines: General Anesthesia, See the Anesthesia note for documentation of the administered medications Patient Profile: This is a 41 year old male. Refer to note in patient chart for documentation of history and physical. Patient has symptoms of acute jaundice. This patient has no history of previous ERCP. Complications: No immediate complications. Procedure: Pre-Anesthesia Assessment: - Prior to the procedure, a History and Physical was performed, and patient medications and allergies were reviewed. The patient is competent. The risks and benefits of the procedure and the sedation options and risks were discussed with the patient. All questions were answered and informed consent was obtained. Patient identification and proposed procedure were verified by the physician in the pre-procedure area. Mental Status Examination: alert and oriented. Airway Examination: normal oropharyngeal airway and neck mobility. Respiratory Examination: clear to auscultation. CV Examination: normal. Prophylactic Antibiotics: The patient does not require prophylactic antibiotics. Prior Anticoagulants: The patient has taken no previous anticoagulant or antiplatelet agents. ASA Grade Assessment: II - A patient with mild systemic disease. After reviewing the risks and benefits, the patient was deemed in satisfactory condition to undergo the procedure. The anesthesia plan was to use moderate sedation / analgesia (conscious sedation). Immediately prior to administration of medications, the patient was re-assessed for adequacy to receive sedatives. The heart rate, respiratory rate, oxygen saturations, blood pressure, adequacy of pulmonary ventilation, and response to care were monitored throughout the procedure. The physical status of the patient was re-assessed after the procedure. After obtaining informed consent, the scope was passed under direct vision. Throughout the procedure, the patient's blood pressure, pulse, and oxygen saturations were monitored continuously. The duodenoscope was introduced through the mouth, and advanced to the duodenum and used to inject contrast into the bile duct and ventral pancreatic duct. The ERCP was accomplished without difficulty. The patient tolerated the procedure well. Moderate Sedation: Moderate (conscious) sedation was administered by the endoscopy nurse and supervised by the endoscopist. The patient's oxygen saturation, heart rate, blood pressure and response to care were monitored. Total physician intraservice time was 15 minutes. The administration of moderate sedation was initiated. Scope In: 4:44:04 PM Scope Out: 6:01:49 PM Total Procedure Duration Time 1 hour 17 minutes 45 seconds Findings: The substation maintenance technician film was normal. The esophagus was successfully intubated under direct vision. The scope was advanced to a normal major papilla in the descending duodenum without detailed examination of the pharynx, larynx and associated structures, and upper GI tract. The upper GI tract was grossly normal. The bile duct was deeply cannulated with the short-nosed traction sphincterotome. Contrast was injected. I personally interpreted the bile duct images. There was brisk flow of contrast through the ducts. The middle third of the main bile duct was completely obstructed by what appeared to be a stone. Opacification of the main bile duct was successful. The maximum diameter of the ducts was 10 mm. The upper third of the main bile duct and cystic duct contained two stones, the largest of which was 11 mm in diameter. The main bile duct, common hepatic duct and left and right hepatic ducts and all intrahepatic branches were diffusely dilated, with a stone causing an obstruction. The largest diameter was 10 mm. A straight Roadrunner wire was passed into the biliary tree. A 5 mm biliary sphincterotomy was made with a traction (standard) sphincterotome using ERBE electrocautery. The sphincterotomy oozed blood. The biliary tree was swept with a 15 mm balloon starting at the bifurcation. Sludge was swept from the duct. All stones were removed. Dilation of the common bile duct with an 8-9-10 mm balloon (to a maximum balloon size of 8 mm) dilator was successful. One 10 Fr by 12 cm temporary stent with two internal flaps was placed 5 cm into the common bile duct. Bile flowed through the stent. The stent was in good position. A standard esophagogastroduodenoscopy scope was used for the examination of the upper gastrointestinal tract. The scope was passed under direct vision through the upper GI tract. LA Grade C (one or more mucosal breaks continuous between tops of 2 or more mucosal folds, less than 75% circumference) esophagitis with no bleeding was found 38 to 41 cm from the incisors. A standard esophagogastroduodenoscopy scope was used for the examination of the upper gastrointestinal tract. The scope was passed under direct vision through the upper GI tract. Two non-bleeding superficial gastric ulcers with no stigmata of bleeding were found in the entire examined stomach. The largest lesion was 6 mm in largest dimension. A standard esophagogastroduodenoscopy scope was used for the examination of the upper gastrointestinal tract. The scope was passed under direct vision through the upper GI tract. Many non-bleeding superficial duodenal ulcers with no stigmata of bleeding were found in the duodenal bulb. The largest lesion was 6 mm in largest dimension. Impression: - LA Grade C reflux esophagitis. - Non-bleeding gastric ulcers with no stigmata of bleeding. - Multiple non-bleeding duodenal ulcers with no stigmata of bleeding. - The entire main bile duct, left and right hepatic ducts and all intrahepatic branches and common hepatic duct were dilated, with a stone causing an obstruction. - Choledocholithiasis with an obstruction was found. Complete removal was accomplished by biliary sphincterotomy and balloon extraction. - A biliary sphincterotomy was performed. - The biliary tree was swept. - Common bile duct was successfully dilated. - One temporary stent was placed into the common bile duct. Recommendation: - Avoid aspirin and nonsteroidal anti-inflammatory medicines. Procedure Code(s): --- Professional --- 45593, Endoscopic retrograde cholangiopancreatography (ERCP); with placement of endoscopic stent into biliary or pancreatic duct, including pre- and post-dilation and guide wire passage, when performed, including sphincterotomy, when performed, each stent 52139, Endoscopic retrograde cholangiopancreatography (ERCP); with removal of calculi/debris from biliary/pancreatic duct(s) 75146, Endoscopic catheterization of the biliary ductal system, radiological supervision and interpretation G0500, Moderate sedation services provided by the same physician or other qualified health career and technology education teacher performing a gastrointestinal endoscopic service that sedation supports, requiring the presence of an independent trained observer to assist in the monitoring of the patient's level of consciousness and physiological status; initial 15 minutes of intra-service time; patient age 5 years or older (additional time may be reported with 74041, as appropriate) CPT copyright 2017 [employer]. All rights reserved. The codes documented in this report are preliminary and upon salvage cutter review may be revised to meet current compliance requirements. Chin Shafer DO 03/06/2022 6:15:19 PM This report has been signed electronically. Number of Addenda: 0 Note Initiated On: 03/06/2022 4:17 PM
--- NOTE | 2022-03-06 18:16 | OP.CCLET_ITS ---
03/06/2022 Jessica Ricardo NP [facility] [address] [place] [id number] Re : ERCP procedure for Enoch Randolph Dear Ms. Ricardo This procedure was performed on Sunday, March 06, 2022. My impressions and recommendations are as follows: Impressions : - LA Grade C reflux esophagitis. - Non-bleeding gastric ulcers with no stigmata of bleeding. - Multiple non-bleeding duodenal ulcers with no stigmata of bleeding. - The entire main bile duct, left and right hepatic ducts and all intrahepatic branches and common hepatic duct were dilated, with a stone causing an obstruction. - Choledocholithiasis with an obstruction was found. Complete removal was accomplished by biliary sphincterotomy and balloon extraction. - A biliary sphincterotomy was performed. - The biliary tree was swept. - Common bile duct was successfully dilated. - One temporary stent was placed into the common bile duct. Recommendations : - Avoid aspirin and nonsteroidal anti-inflammatory medicines. My findings are described in the full procedure note, which is enclosed. If I can be of further assistance, please feel free to contact me at . Sincerely, Chin Shafer DO 03/06/2022 6:15:19 PM This report has been signed electronically.
[2022-03-07] VITALS (11 sets, daily range): BP systolic 125–161; BP diastolic 66–99; PULSE 70–91; RESP 16–22; TEMP 36.4–37.9; O2SAT 96–100; BMI 29.5
--- NOTE | 2022-03-07 | GALL_PTH ---
PATIENT: ODALYS CHANCE LOC: [facility] U#:[id number] AGE/SX: 41/M ROOM: [facility] RE03/06/[address]: Dr. Thom Abraham MD : 1980 BED: 1 DIS: 03/11/2022 SPEC #: [id number] RECD: 03/08/22 08:29 STATUS: BETITO GUTIERREZDarius #: [id number] GISEL: 03/07/22 00:[address]: Nick Pace DEPT: SURGICAL PATHOLOGY RECD BY: Adrian Braun ENTERED: 03/08/22 08:38 SP TYPE: GALLBLADDE OT DR: MD Dr. Ulises Rosado MD Dr. Kathryn Lee, DO Dora Richardson, LEAD BASED PAINT TECHNICIAN-C Tissues: Gallbladder, NOS Procedures: Surgery Specimen Level III Comments: @ Ordering doctor for SUIII edited from to @ maria d RETANA at 03/08/22 142 @ Submitting doctor edited from to @ by LAINEY at 03/08/221421 HEADER OPERATION: Laparoscopic cholecystectomy with IOC PRE-OP DIAGNOSIS: Choledocholithiasis with cholecystitis TISSUE SUBMITTED: Gallbladder MICROSCOPIC DIAGNOSIS Gallbladder, cholecystectomy: Chronic cholecystitis and cholelithiasis. MICROSCOPIC DESCRIPTION Slides are reviewed. GROSS DESCRIPTION Received is one container labeled with the patient's name and designated gallbladder. The specimen consists of a gallbladder measuring 7.0 cm in length and up to 4.0 cm in diameter. The external surface is pink-feliz, smooth and glistening for the most part. Focally it is granular, hemorrhagic and contains cautery artifact. The gallbladder contains a small amount of bile and multiple yellowish-orange stones and sludge material measuring in aggregate 4.0 x 3.5 x 0.5 cm and 0.1 to 0.9 cm in greatest dimension. The mucosa is bile-stained and without any mass lesions. The gallbladder wall measures up to 0.3 cm in thickness. Senior Drupal Developer sections from the gallbladder and the cystic duct are submitted in one cassette. / YAZMIN:NIKKO 03/09/2022 TC:3 CPT: 56960
[2022-03-07] MEDS: 0.9% Saline Lock 10 ML Syringe IV (03:58)
[2022-03-07] MEDS: 0.9% Normal Saline 1,000 ML 125 ML IV (03:58)
[2022-03-07] MEDS: Ondansetron 4 MG/2 ML Vial IV (03:58)
[2022-03-07 05:07] LABS: HEPATITIS B SURFACE AG Negative (Negative); Hepatitis A IgM Antibody Negative (Negative); Hepatitis B Core AB IgM Negative (Negative)
[2022-03-07 05:39] LABS: Absolute Lymphocyte Count 0.64 X10^3/uL (0.83-4.51); Absolute Neutrophil Count 9.9 X10^3/uL (2.0-7.7); Basophil# 0.01 X10^3/uL; Basophil% 0.1 % (0-1); Hematocrit 47.8 % (40-54); Lymphocyte # 0.64 X10^3/ul (0.83-4.51); Lymphocyte % 5.6 % (19-41); Mean Corp Hgb Conc 33.5 g/dL (32-36); Mean Corpuscular Volume 86.8 fL (80-94); Monocyte# 0.91 X10^3/uL; Monocyte% 7.9 % (0-10); NRBC Flagged by Analyzer 0 % (0-5); Neutrophil # 9.92 X10^3/uL (2.7-7.7); Platelet Count 215 K/mm3 (150-450); RBC Distribution Width CV 12.9 % (11.6-14.6); RBC Distribution Width SD 40.7 fl (35.1-43.9); Red Blood Count 5.51 M/mm3 (4.6-6.2); White Blood Count 11.5 K/mm3 (4.4-11.0)
[2022-03-07] MEDS: Morphine 2 MG/ML Syringe IV (06:43)
[2022-03-07 06:44] LABS: AST(SGOT) 87 U/L (15-37); Alanine Aminotransfer ALT/SGPT 396 U/L (16-61); Albumin, Serum 3.3 g/dL (3.2-5.0); Alkaline Phosphatase 219 U/L (45-117); Anion Gap 11 (5-15); BUN 9 mg/dL (7-18); BUN/Creat Ratio 10.1 RATIO (10-20); Bilirubin, Direct 6.25 mg/dL (0.00-0.30); Calcium,Total 8.3 mg/dL (8.5-10.1); Chloride 106 mmol/L (98-107); Creatinine, Serum 0.89 mg/dL (0.70-1.30); EST Glomerular Filtration Rate 99 mL/min (>60); Est Glom Filt Rate - Afr Amer 120 mL/min (>60); Estimated Creatinine Clearance 126.99 ml/min; Globulin 3.6 g/dL (2.2-4.2); Glucose 116 mg/dL (74-106); Potassium 4.5 mmol/L (3.5-5.1); Protein, Total 6.9 g/dL (6.4-8.2); Sodium Level 137 mmol/L (136-145)
--- NOTE | 2022-03-07 07:32 | PN.SURG_ITS ---
Subjective Subjective Patient seen and examined during AM rounds. He complains of significant right upper quadrant discomfort this morning. He states that he just had a dose of morphine but it has not kicked in yet. He does declare that his upper chest discomfort is much improved following yesterday's ERCP. Objective Data Objective Data Vital Signs: Vital Signs Temp Pulse Resp BP Pulse Ox 98 F 91 18 125/66 H 97 03/07/22 02:27 03/07/22 02:27 03/07/22 02:27 03/07/22 02:27 03/07/22 02:27 Oxygen Delivery Method Room Air Weight: 230 lb 9.656 oz Body Mass Index (BMI) 29.7 Intake & Output: Intake and Output for Last 24 Hours 03/05/22 03/06/22 03/07/22 23:59 23:59 23:59 Intake Total 3608.33 / 3608.33 1500 / 1500 Balance 3608.33 / 3608.33 1500 / 1500 Lab / Micro Data Result Diagrams: 03/07/22 05:22 03/07/22 05:22 Labs: Laboratory Results - last 24 hr 03/07/22 05:22: WBC 11.5 H, RBC 5.51, Hgb 16.0, Hct 47.8, MCV 86.8, MCH 29.0, MCHC 33.5, RDW Std Deviation 40.7, RDW Coeff of Chan 12.9, Plt Count 215, MPV 10.0, Immature Gran % (Auto) 0.400, Neut % (Auto) 86.0 H, Lymph % (Auto) 5.6 L, [place] % (Auto) 7.9, Eos % (Auto) 0.0, Baso % (Auto) 0.1, Absolute Neuts (auto) 9.9 H, Absolute Lymphs (auto) 0.64 L, Nucleated RBC % 0 03/07/22 05:22: Sodium 137, Potassium 4.5, Chloride 106, Carbon Dioxide 20.0 L, Anion Gap 11, BUN 9, Creatinine 0.89, Estim Creat Clear Calc 126.99, Est GFR ( RD) Af Amer 120, Est GFR (MDRD) Non-Af 99, BUN/Creatinine Ratio 10.1, Glucose 116 H, Calcium 8.3 L, Total Bilirubin 8.70 H, Direct Bilirubin 6.25 H, AST 87 H, ALT 396 H, Alkaline Phosphatase 219 H, Total Protein 6.9, Albumin 3.3, Globulin 3.6 Micro: Microbiology 03/06/22 08:40 Nasal Secretion SARS-CoV-2 Antigen (Rapid) - Final Physical Exam Const Constitutional Narrative: Mild distress from right upper quadrant pain Resp normal respiratory effort GI GI Narrative: Nondistended, soft, tender to palpation in the right upper quadrant?otherwise unremarkable Assessment & Plan Assessment/Plan (1) Choledocholithiasis with cholecystitis: PLAN: Patient currently n.p.o. in anticipation of laparoscopic cholecystectomy with intraoperative cholangiogram later today. ERCP performed yesterday with successful extraction of common duct stone. CMP demonstrates appropriate downtrend in patient laboratories. A.m. exam consistent with symptoms of cholecystitis. Continue to treat as needed for this discomfort. Charges/Coding Visit Charges Inpatient E&M: 46084 Subs Hosp L2
[2022-03-07 09:02] LABS: Hep C Antibodies 0.4 s/co ratio (0.0-0.9)
[2022-03-07] MEDS: 0.9% Normal Saline 1,000 ML 100 ML IV ×4 (09:48→22:01)
[2022-03-07] MEDS: Morphine 4 MG/ML Syringe IV (09:53)
--- NOTE | 2022-03-07 13:14 | PN.HOSP_ITS ---
Subjective Subjective Patient still having right upper quadrant pain and epigastric pain. Scheduled for surgery this afternoon. States he just had pain medicine but was not that effective. Dose has been adjusted since. Objective Data Objective Data Vital Signs: Vital Signs Temp Pulse Resp BP Pulse Ox 98.4 F 72 20 H 153/93 H 100 03/07/22 12:49 03/07/22 12:49 03/07/22 12:49 03/07/22 12:49 03/07/22 12:49 Oxygen Delivery Method Room Air Weight: 104.6 kg Body Mass Index (BMI) 29.5 Intake & Output: Intake and Output for Last 24 Hours 03/05/22 03/06/22 03/07/22 23:59 23:59 23:59 Intake Total 3608.33 / 3608.33 2269.16 / 2269.16 Balance 3608.33 / 3608.33 2269.16 / 2269.16 Lab / Micro Data Result Diagrams: 03/07/22 05:22 03/07/22 05:22 Labs: Laboratory Results - last 24 hr 03/05/22 22:00: Hepatitis A IgM Ab Negative, Hep Bs Antigen Negative, Hep B Core IgM Ab Negative, Hepatitis C Ab (EIA) 0.4 03/07/22 05:22: WBC 11.5 H, RBC 5.51, Hgb 16.0, Hct 47.8, MCV 86.8, MCH 29.0, MCHC 33.5, RDW Std Deviation 40.7, RDW Coeff of Chan 12.9, Plt Count 215, MPV 10.0, Immature Gran % (Auto) 0.400, Neut % (Auto) 86.0 H, Lymph % (Auto) 5.6 L, [place] % (Auto) 7.9, Eos % (Auto) 0.0, Baso % (Auto) 0.1, Absolute Neuts (auto) 9.9 H, Absolute Lymphs (auto) 0.64 L, Nucleated RBC % 0 03/07/22 05:22: Sodium 137, Potassium 4.5, Chloride 106, Carbon Dioxide 20.0 L, Anion Gap 11, BUN 9, Creatinine 0.89, Estim Creat Clear Calc 126.99, Est GFR (MDRD) Af Amer 120, Est GFR (MDRD) Non-Af 99, BUN/Creatinine Ratio 10.1, Glucose 116 H, Calcium 8.3 L, Total Bilirubin 8.70 H, Direct Bilirubin 6.25 H, AST 87 H, ALT 396 H, Alkaline Phosphatase 219 H, Total Protein 6.9, Albumin 3.3, Globulin 3.6 Micro: Microbiology 03/06/22 08:40 Nasal Secretion SARS-CoV-2 Antigen (Rapid) - Final Radiography Diagnostic Testing: Radiology Impression Endo Retro Cholangiopancreatogram 03/06/22 16:41 IMPRESSION: Placement of a biliary stent. Electronically Signed: Ye Galicia MD at 9:00 EDT , Physical Exam Const alert and oriented x3 Constitutional Narrative: Overweight middle-aged white male lying in bed, appears uncomfortable but nontoxic Exam Limitations: no limitations Nutritional Appearance: overweight HEENT head/scalp atraumatic and moist oral mucous membranes HEENT Narrative: Mallampati is 2, no thrush Head and Scalp: normocephalic Resp normal respiratory effort, no retractions, no use of accessory muscles and clear to auscultation bilaterally Auscultation: Negative for crackles, rales, rhonchi or wheezes Cardio regular rate, regular rhythm, S1 normal heart sound, S2 normal heart sound, no murmurs, no rub, no gallops, no clicks and no JVD GI soft to palpation and non-distended GI Narrative: Tender right upper quadrant and epigastrium with some extension into the left upper quadrant, bowel sounds are normoactive Extremity no clubbing, cyanosis or edema Peripheral Pulses: Yes pulses 2+ throughout Neuro oriented x3, moves all extremities and no focal motor deficits Sensorium / Orientation: awake and alert Speech: speech normal Assessment & Plan Assessment/Plan (1) RUQ abdominal pain: (2) Jaundice: (3) Choledocholithiasis with cholecystitis: (4) Transaminitis: (5) Gastric ulcer: PLAN: Choledocholithiasis with cholecystitis -ERCP done 03/06/2022 with removal of choledocholithiasis/biliary sphincterotomy/common bile duct dilation with stent placed -Stent is temporary -Plan is for OR today for cholecystectomy with Dr. Pace -Continue n.p.o. -Increase morphine from 2 mg every 3 hours to 4 mg every 3 hours as current dose is ineffective -Continue IV fluids until p.o. intake is possible Transaminitis with hyperbilirubinemia -Related to choledocholithiasis and cholecystitis -Continue to trend enzymes -Repeat lab in a.m. -Monoscreen was negative -Viral hepatitis panel is pending Gastric ulcer -Noted on EGD -No stigmata of bleeding -Avoid NSAIDs/aspirin -Start Protonix 40 mg daily postoperatively DVT prophylaxis -Start postoperative Lovenox -SCDs CODE STATUS -Full code Charges/Coding Visit Charges Inpatient E&M: 40870 Subs Hosp L2
--- NOTE | 2022-03-07 13:30 | NURSING ---
Patient left unit to OR/PACU
[2022-03-07] MEDS: Cefazolin 2 GM in 0.9% Normal Saline 100 ML IV (14:45)
--- NOTE | 2022-03-07 15:20 | RAD_ITS ---
INDICATION: PAIN EXAMINATION/TECHNIQUE: 2 fluoroscopic cine loops are presented for evaluation. Total Fluoroscopic Time: 22.5 seconds AND number of Fluoroscopic Images: -2 cine loops OR Radiation dosage index: Cumulative dose: 0.31083, mGym2; 14.44; mGy COMPARISON: ERCP examination of 03/06/2022 FINDINGS: Intraoperative Cholangiogram submitted for review. There is stain of contrast within the RIGHT upper quadrant in the region of the nickie of the liver however no contrast noted extending into the biliary ductal system. Biliary stent is in place. There is a meniscal appearance of the contrast in what appears to be a short segment of a dilated cystic duct, which may represent an obstructing calcification. Please see operative report for details RAD/Cholangiogram/ O R,Initial IMPRESSION: 1. Biliary stent is noted in place consistent with ERCP examination. 2. Stain of contrast in the RIGHT upper quadrant likely due to extravasation. 3. No significant contrast noted extending into the biliary ductal system, however there does appear to be a dilated cystic duct and a meniscal appearance of filling defects suspicious of a cystic duct stone. Electronically Signed: Chiki Simons MD at 22:06 EDT ,
--- NOTE | 2022-03-07 17:55 | OP.PCM_ITS ---
Report of Operation Date of Procedure: 03/07/22 Pre-Operative Diagnosis: 1. Choledocholithiasis status post ERCP with stent pl acement but persistent lodging of stone in the distal cystic duct 2. Cholecystitis 3. Small, nonincarcerated umbilical hernia Post-Operative Diagnosis: Same Surgery/Procedure Performed:: 1. Laparoscopic cholecystectomy with attempted cholangiogram 2. Open primary repair of umbilical hernia Description of Surgical Findings:: ? Contracted gallbladder with dense inflammatory reaction near the gallbladder infundibulum ? Carrington cystic duct ? Inability to achieve antegrade flow of contrast through the cystic duct with cholangiogram despite occlusion of the duct with Surgeon: Nick Pace class a regional drivers: Tavo Teixeira class a regional drivers: Drea Quiroga Type of Anesthesia: General/Supplemental Anesthesiologist: Kin Bolton Specimen's removed: Gallbladder Drains: None Estimated Blood Loss (mL): 50 Description of Procedure: After proper identification in the preoperative holding area the patient was brought to the operating room where he was positioned supine on the operating room table. Preoperatively SCDs were placed and antibiotics were administered. General anesthesia was then induced. Patient's abdomen was prepped (including clipping all visible hair in the surgical field) and draped in usual sterile fashion. A formal timeout was conducted to confirm both patient and the procedure. Procedure was begun with a curvilinear infraumbilical incision. Once through the dermis, blunt dissection was used to encircle the patient's umbilical hernia sac down to the level of the fascia. With a hemostat completely placed around the stalk, the overlying umbilical skin was sharply removed from the sac. The fascial opening from the hernia was palpated and found to be just slightly too small to accommodate our 12 mm Trevizo balloon trocar site so this defect was extended cephalad by 3 mm using electrocautery. A finger sweep was performed to ensure there were no underlying adhesions and a 12 mm balloon trocar was inserted. Pneumoperitoneum was established at 15 mmHg. 3 additional trocars were placed in the epigastrium (12 mm) and in the right upper quadrant (2 x 5 mm). Inspection of the peritoneum revealed no inadvertent injury to the viscera below. The gallbladder was visualized with severe inflammation near the gallbladder infundibulum. The gallbladder fundus was then grasped and elevated cephalad. Then, carefully the peritoneum was opened both anteriorly and posteriorly along the level of the gallbladder infundibulum. Using careful dissection the peritoneum was opened and the structures of the hepatocystic triangle were delineated. This proved to be quite tedious/challenging given the density of the inflammation around the cystic duct and bleeding from the area of what was assumed to be the cystic artery. Ultimately I was able to define the interface between the base of the gallbladder and the cystic duct and make a passageway between the structures. The cystic duct appeared very dilated and truncated. During my dissection a small hole was made in the anterior aspect of the cystic duct and I milked a few stone fragments through this opening. I then attempted to perform a cholangiogram by placing a 14-gauge angiocatheter through the abdominal wall in the right upper quadrant and advancing a cholangiocatheter through the ductotomy. A 12 mm clip snuff box finisher was used to place 2 clips across the cystic duct and cholangiocatheter. This appeared to produce reasonable occlusion of the cystic duct. However, when I attempted to perform the cholangiogram, there was no antegrade propagation of the contrast and it began to extravasate from the high pressure applied. This suggested a distal occlusion of the cystic duct by a retained stone. I then removed the cholangiocatheter and attempted to milk the cystic duct back approximately using careful traction on the duct with a [place] clamp. Unfortunately, this was unfruitful. At this point I called my partner to the room to verify anatomy since I was concerned a cholangiogram would not be possible. He verified the anatomy and suggested to go ahead and ta ke the tubular structure designated as the cystic artery to provide more length on the cystic duct. This was accomplished, but this structure actually proved to be a lymphatic and the true cystic duct was advertently encountered more posteriorly. This resulted in some bleeding that was quickly controlled by further dissection of the posterior aspect of the artery and ligation with triple clipping. The artery was then sharply divided. With increased length on the cystic duct I tried to palpate for the lodged distal cystic duct stone with a [place] grasper and advance the cholangiocatheter more distally, but with neither was I able to get tactile feedback that I was down to the level of the retained stone. At this point no further means of dislodging the stone were available and I elected to clip the cystic duct distal to the ductotomy and divided duct in the usual fashion. The gallbladder was then removed from the gallbladder fossa with the use of electrocautery. Selective electrocautery was used to obtain hemostasis in the gallbladder fossa. The gallbladder was placed in an Endo Catch bag and removed from the peritoneum. Morison's pouch was irrigated and the effluent was suctioned free of the peritoneum. Hemostasis was again confirmed. Pneumoperitoneum was evacuated and the fascia of the 12 mm port site in the subxiphoid position was closed with #1Vicryl in a figure -of-eight fashion. The umbilical hernia defect was closed with interrupted 0 Prolene suture. A 3-0 Vicryl stitch was used to tack the umbilical skin back down to the level of the fascia. A total of 20 mL 0.75% bupivacaine local anesthetic was injected at the port sites for postoperative pain control. The skin of each port site was then closed in subcuticular fashion using 4-0 Monocryl. Steri-Strips and bandages were applied as dressings to the port site while a rolled Telfa was placed into the umbilical concavity to train down the umbilical skin. Given the persistently obstructed distal common duct, gastroenterology was informed of this issue while patient remained under anesthesia and stated they will plan to consider repeat ERCP with possible lithotripsy tomorrow. On emergence from their anesthetic the patient was taken to PACU for ongoing recovery. Complications ? Retained distal cystic duct stone Admit VTE Documentation VTE Present on Admission: Yes VTE Mechan Device Prophylaxis: SCD's VTE Pharm Prophylaxis ordered?: No
--- NOTE | 2022-03-07 19:14 | PCM.PROGNOTE ---
Subjective Subjective Patient underwent elective cholecystectomy today. He does complain of some abdominal pain but it is tolerable. He has a low-grade temperature. I talked with his that is at the bedside explaining to them that he has a stone in his cystic duct that needs to be removed. Objective Data Objective Data Vital Signs: Vital Signs Temp Pulse Resp BP Pulse Ox 100.2 F H 88 16 149/87 H 96 03/07/22 19:00 03/07/22 19:00 03/07/22 19:00 03/07/22 19:00 03/07/22 19:00 Oxygen Delivery Method Room Air Weight: 230 lb 9.656 oz Body Mass Index (BMI) 29.5 Intake & Output: Intake and Output for Last 24 Hours 03/05/22 03/06/22 03/07/22 23:59 23:59 23:59 Intake Total 3608.33 / 3608.33 4355.83 / 4355.83 Balance 3608.33 / 3608.33 4355.83 / 4355.83 Lab / Micro Data Result Diagrams: 03/07/22 05:22 03/07/22 05:22 Labs: Laboratory Results - last 24 hr 03/05/22 22:00: Hepatitis A IgM Ab Negative, Hep Bs Antigen Negative, Hep B Core IgM Ab Negative, Hepatitis C Ab (EIA) 0.4 03/07/22 05:22: WBC 11.5 H, RBC 5.51, Hgb 16.0, Hct 47.8, MCV 86.8, MCH 29.0, MCHC 33.5, RDW Std Deviation 40.7, RDW Coeff of Chan 12.9, Plt Count 215, MPV 10.0, Immature Gran % (Auto) 0.400, Neut % (Auto) 86.0 H, Lymph % (Auto) 5.6 L, [place] % (Auto) 7.9, Eos % (Auto) 0.0, Baso % (Auto) 0.1, Absolute Neuts (auto) 9.9 H, Absolute Lymphs (auto) 0.64 L, Nucleated RBC % 0 03/07/22 05:22: Sodium 137, Potassium 4.5, Chloride 106, Carbon Dioxide 20.0 L, Anion Gap 11, BUN 9, Creatinine 0.89, Estim Creat Clear Calc 126.99, Est GFR (MDRD) Af Amer 120, Est GFR (MDRD) Non-Af 99, BUN/Creatinine Ratio 10.1, Glucose 116 H, Calcium 8.3 L, Total Bilirubin 8.70 H, Direct Bilirubin 6.25 H, AST 87 H, ALT 396 H, Alkaline Phosphatase 219 H, Total Protein 6.9, Albumin 3.3, Globulin 3.6 Micro: Microbiology 03/06/22 08:40 Nasal Secretion SARS-CoV-2 Antigen (Rapid) - Final Radiography Diagnostic Testing: Radiology Impression Endo Retro Cholangiopancreatogram 03/06/22 16:41 IMPRESSION: Placement of a biliary stent. Electronically Signed: Ye Galicia MD at 9:00 EDT , Physical Exam Const alert General Appearance: cooperative Orientation / Consciousness: oriented to person HEENT hearing grossly normal bilaterally Head and Scalp: normal to inspection Face and Sinus: face symmetric Nose: external nose normal Mouth: oral and palatal mucosa normal Eyes conjunctivae normal General Eye: normal appearance of both eyes Neck full ROM General: normal visual inspection Lymph Lymphatic: no lymphadenopathy noted Chest inspection of chest normal and palpation of chest normal Chest: symmetrical chest wall rise Resp normal respiratory effort Effort and Inspection: able to speak in complete sentences Cardio regular rate GI non-distended Percussion: normal to percussion Rectal Exam: deferred Neuro Speech: speech normal Gait (Neuro): normal gait Assessment & Plan Assessment/Plan (1) Choledocholithiasis with cholecystitis: PLAN: Status post ERCP with stone removal stricture dilation and stent placement. He still has a stone lodged in the cystic duct and will need an ERCP with lithotripsy. He has a low-grade temperature. I will get blood cultures and continue Zosyn therapy. N.p.o. after midnight, IV fluids and pain control. All questions answered at the bedside. Charges/Coding Visit Charges Inpatient E&M: 01079 Subs Hosp L2
[2022-03-08 00:06] VITALS: BP 149/98; PULSE 93; RESP 20; TEMP 37.4; O2SAT 95
[2022-03-08] MEDS: Morphine 4 MG/ML Syringe IV (00:19)
[2022-03-08 04:12] VITALS: BP 152/104; PULSE 81; RESP 20; TEMP 37.2; O2SAT 96
[2022-03-08 05:16] LABS: Absolute Lymphocyte Count 0.84 X10^3/uL (0.83-4.51); Basophil# 0.01 X10^3/uL; Basophil% 0.1 % (0-1); Hematocrit 45.7 % (40-54); Hemoglobin 15.3 g/dL (13.0-16.5); Lymphocyte # 0.84 X10^3/ul (0.83-4.51); Lymphocyte % 5.6 % (19-41); Mean Corp Hgb Conc 33.5 g/dL (32-36); Mean Corpuscular Hgb 29.5 pg (27.0-32.0); Mean Corpuscular Volume 88.1 fL (80-94); Mean Platelet Vol. 10.1 fl (6.2-12.0); Monocyte# 1.18 X10^3/uL; Monocyte% 7.8 % (0-10); NRBC Flagged by Analyzer 0 % (0-5); Platelet Count 203 K/mm3 (150-450); RBC Distribution Width CV 13.2 % (11.6-14.6); RBC Distribution Width SD 42.7 fl (35.1-43.9); Red Blood Count 5.19 M/mm3 (4.6-6.2); White Blood Count 15.1 K/mm3 (4.4-11.0)
[2022-03-08] MEDS: Ketorolac 15 MG/ML Vial IV ×3 (05:25→21:08)
[2022-03-08 06:02] LABS: AST(SGOT) 89 U/L (15-37); Alanine Aminotransfer ALT/SGPT 301 U/L (16-61); Albumin, Serum 2.8 g/dL (3.2-5.0); Alkaline Phosphatase 198 U/L (45-117); Anion Gap 3 (5-15); BUN 8 mg/dL (7-18); BUN/Creat Ratio 10.4 RATIO (10-20); Bilirubin, Direct 2.33 mg/dL (0.00-0.30); Chloride 105 mmol/L (98-107); Creatinine, Serum 0.77 mg/dL (0.70-1.30); EST Glomerular Filtration Rate 118 mL/min (>60); Est Glom Filt Rate - Afr Amer 142 mL/min (>60); Estimated Creatinine Clearance 146.79 ml/min; Globulin 3.5 g/dL (2.2-4.2); Glucose 111 mg/dL (74-106); Potassium 3.8 mmol/L (3.5-5.1); Protein, Total 6.3 g/dL (6.4-8.2); Sodium Level 137 mmol/L (136-145)
[2022-03-08] MEDS: 0.9% Normal Saline 1,000 ML 100 ML IV ×2 (07:42→16:22)
[2022-03-08 07:46] VITALS: BP 138/94; PULSE 98; RESP 16; TEMP 37.7; O2SAT 98
--- NOTE | 2022-03-08 08:33 | PN.SURG_ITS ---
Subjective Subjective Patient seen and examined during AM rounds. He is found resting in bed. He states that his deeper abdominal pain is improved this morning he also states that his nausea is better. However, he did not take anything of a diet last evening as he fell asleep before he could arrive to his room. Objective Data Objective Data Vital Signs: Vital Signs Temp Pulse Resp BP Pulse Ox 99.9 F H 98 16 138/94 H 98 03/08/22 07:46 03/08/22 07:46 03/08/22 07:46 03/08/22 07:46 03/08/22 07:46 Oxygen Delivery Method Room Air Weight: 239 lb 13.807 oz Body Mass Index (BMI) 29.5 Intake & Output: Intake and Output for Last 24 Hours 03/06/22 03/07/22 03/08/22 23:59 23:59 23:59 Intake Total 3608.33 / 3608.33 4782.50 / 4782.50 1218.08 / 1218.08 Balance 3608.33 / 3608.33 4782.50 / 4782.50 1218.08 / 1218.08 Lab / Micro Data Result Diagrams: 03/08/22 04:40 03/08/22 04:40 Labs: Laboratory Results - last 24 hr 03/05/22 22:00: Hepatitis A IgM Ab Negative, Hep Bs Antigen Negative, Hep B Core IgM Ab Negative, Hepatitis C Ab (EIA) 0.4 03/08/22 04:40: WBC 15.1 H, RBC 5.19, Hgb 15.3, Hct 45.7, MCV 88.1, MCH 29.5, MCHC 33.5, RDW Std Deviation 42.7, RDW Coeff of Chan 13.2, Plt Count 203, MPV 10.1, Immature Gran % (Auto) 0.500, Neut % (Auto) 86.0 H, Lymph % (Auto) 5.6 L, [place] % (Auto) 7.8, Eos % (Auto) 0.0, Baso % (Auto) 0.1, Absolute Neuts (auto) 13.0 H, Absolute Lymphs (auto) 0.84, Nucleated RBC % 0 03/08/22 04:40: Sodium 137, Potassium 3.8, Chloride 105, Carbon Dioxide 29.0, Anion Gap 3 L, BUN 8, Creatinine 0.77, Estim Creat Clear Calc 146.79, Est GFR (MDRD) Af Amer 142, Est GFR (MDRD) Non-Af 118, BUN/Creatinine Ratio 10.4, Glucose 111 H, Calcium 8.0 L, Total Bilirubin 4.20 H, Direct Bilirubin 2.33 H, AST 89 H, ALT 301 H, Alkaline Phosphatase 198 H, Total Protein 6.3 L, Albumin 2. 8 L, Globulin 3.5 Micro: Microbiology 03/06/22 08:40 Nasal Secretion SARS-CoV-2 Antigen (Rapid) - Final Radiography Diagnostic Testing: Radiology Impression Endo Retro Cholangiopancreatogram 03/06/22 16:41 IMPRESSION: Placement of a biliary stent. Electronically Signed: Ye Galicia MD at 9:00 EDT , Cholangiogram 03/07/22 15:20 IMPRESSION: 1. Biliary stent is noted in place consistent with ERCP examination. 2. Stain of contrast in the RIGHT upper quadrant likely due to extravasation. 3. No significant contrast noted extending into the biliary ductal system, however there does appear to be a dilated cystic duct and a meniscal appearance of filling defects suspicious of a cystic duct stone. Electronically Signed: Chiki Simons MD at 22:06 EDT , Physical Exam Const oriented x3 and no apparent distress Resp normal respiratory effort GI GI Narrative: Nondistended, soft, appropriately tender to palpation at the abdominal wall about incisions. Surgical dressings remain intact and are clean and dry. Assessment & Plan Assessment/Plan (1) S/P laparoscopic cholecystectomy: PLAN: Patient postoperative day 1 from laparoscopic cholecystectomy with aborted cholangiogram and repair of umbilical hernia. Patient has had improvement in his right upper quadrant discomfort following surgery. However there is still a cystic duct stone that gastroenterology plans to address later today. From a surgical standpoint, after this GI procedure, patient could be advanced to a regular diet. (2) S/P umbilical hernia repair, follow-up exam: PLAN: Patient is encouraged to keep his surgical dressing in place 3 days postop and adhere to lifting restrictions of no more weight than 10 pounds for the next 4 weeks. For both the umbilical hernia repair and cholecystectomy, would like to follow-up with patient in clinic in 7 to 10 days postop. (3) Cystic duct calculus: PLAN: Persistent cystic duct stone to be addressed by gastroenterology later today Charges/Coding Visit Charges Inpatient E&M: 30769 Subs Hosp L2
--- NOTE | 2022-03-08 11:40 | PCM.PN.HOSP ---
Subjective Subjective Patient states clinically he is feeling much better since his surgery yesterday. Unfortunately there appears to be a stone in the cystic duct for which he needs to undergo a repeat ERCP with lithotripsy today. That is planned for later this afternoon. He denies any flatus or bowel movements. He is hoping to go home tomorrow if possible. I did discuss with him it would depend on his bowel function and his ability to intake liquids and food. Patient did have low-grade temperature elevations overnight with a T-max of 100.2. Vital signs were otherwise overall unremarkable other than blood pressure elevation. Objective Data Objective Data Vital Signs: Vital Signs Temp Pulse Resp BP Pulse Ox 99.9 F H 98 16 138/94 H 98 03/08/22 07:46 03/08/22 07:46 03/08/22 07:46 03/08/22 07:46 03/08/22 07:46 Oxygen Delivery Method Room Air Weight: 108.8 kg Body Mass Index (BMI) 29.5 Intake & Output: Intake and Output for Last 24 Hours 03/06/22 03/07/22 03/08/22 23:59 23:59 23:59 Intake Total 3608.33 / 3608.33 4782.50 / 4782.50 1268.08 / 1268.08 Balance 3608.33 / 3608.33 4782.50 / 4782.50 1268.08 / 1268.08 Lab / Micro Data Result Diagrams: 03/08/22 04:40 03/08/22 04:40 Labs: Laboratory Results - last 24 hr 03/08/22 04:40: WBC 15.1 H, RBC 5.19, Hgb 15.3, Hct 45.7, MCV 88.1, MCH 29.5, MCHC 33.5, RDW Std Deviation 42.7, RDW Coeff of Chan 13.2, Plt Count 203, MPV 10.1, Immature Gran % (Auto) 0.500, Neut % (Auto) 86.0 H, Lymph % (Auto) 5.6 L, [place] % (Auto) 7.8, Eos % (Auto) 0.0, Baso % (Auto) 0.1, Absolute Neuts (auto) 13.0 H, Absolute Lymphs (auto) 0.84, Nucleated RBC % 0 03/08/22 04:40: Sodium 137, Potassium 3.8, Chloride 105, Carbon Dioxide 29.0, Anion Gap 3 L, BUN 8, Creatinine 0.77, Estim Creat Clear Calc 146.79, Est GFR (MDRD) Af Amer 142, Est GFR (MDRD) Non-Af 118, BUN/Creatinine Ratio 10.4, Glucose 111 H, Calcium 8.0 L, Total Bilirubin 4.20 H, Direct Bilirubin 2.33 H, AST 89 H, ALT 301 H, Alkaline Phosphatase 198 H, Total Protein 6.3 L, Albumin 2.8 L, Globulin 3.5 Micro: Microbiology 03/06/22 08:40 Nasal Secretion SARS-CoV-2 Antigen (Rapid) - Final Radiography Diagnostic Testing: Radiology Impression Cholangiogram 03/07/22 15:20 IMPRESSION: 1. Biliary stent is noted in place consistent with ERCP examination. 2. Stain of contrast in the RIGHT upper quadrant likely due to extravasation. 3. No significant contrast noted extending into the biliary ductal system, however there does appear to be a dilated cystic duct and a meniscal appearance of filling defects suspicious of a cystic duct stone. Electronically Signed: Chiki Simons MD at 22:06 EDT , Physical Exam Const alert, oriented x3 and no apparent distress Constitutional Narrative: Overweight middle-aged white male lying in bed, appears much more comfortable, watching television, nontoxic General Appearance: cooperative Exam Limitations: no limitations Nutritional Appearance: overweight HEENT normocephalic, head/scalp atraumatic and moist oral mucous membranes HEENT Narrative: Dentition is fair, no thrush, Mallampati 2, buccal jaundice Head and Scalp: normocephalic Neck General: trachea midline Resp normal respiratory effort, normal air movement, no retractions, no use of accessory muscles and clear to auscultation bilaterally Auscultation: Negative for crackles, rales, rhonchi or wheezes Cardio regular rate, regular rhythm, S1 normal heart sound, S2 normal heart sound, no murmurs, no rub, no gallops, no clicks, no JVD and peripheral pulses 2+ throughout GI soft to palpation and non-distended GI Narrative: Postoperative sites with dressings clean dry and intact, mild diffuse tenderness, bowel sounds are hypoactive Palpation: tender RUQ Extremity normal capillary refill and no clubbing, cyanosis or edema General Extremity: no tenderness to palpation of joints or extremities Peripheral Pulses: Yes pulses 2+ throughout Skin General Skin Exam: no breakdown, turgor normal and jaundice Lesions: no lesions Rashes: no rashes Neuro oriented x3, moves all extremities and no focal motor deficits Sensorium / Orientation: awake and alert Speech: speech normal Motor Exam: Negative for general weakness Psych thought process normal, cooperative and affect normal Appearance: appropriate Assessment & Plan Assessment/Plan (1) RUQ abdominal pain: (2) Jaundice: (3) Choledocholithiasis with cholecystitis: (4) Transaminitis: (5) Gastric ulcer: PLAN: Choledocholithiasis with cholecystitis -ERCP done 03/06/2022 with removal of choledocholithiasis/biliary sphincterotomy/common bile duct dilation with stent placed -Stent is temporary -Patient was taken the OR yesterday for laparoscopic cholecystectomy with Dr. Pace -Unfortunately patient has remaining cystic duct stone -Plan is for repeat ERCP later today with lithotripsy -Continue n.p.o. -Continue as needed morphine while patient is n.p.o.--> increased dose helped him significantly with his symptoms -Continue IV fluids until p.o. intake is possible -Continue Zosyn Transaminitis with hyperbilirubinemia -Related to choledocholithiasis and cholecystitis -Enzymes are trending down -Repeat lab in a.m. -Monoscreen was negative -Hepatitis studies were negative Gastric ulcer -Noted on EGD -No stigmata of bleeding -Avoid NSAIDs/aspirin -Continue Protonix 40 mg p.o. daily DVT prophylaxis -Lovenox 40 subcu -SCDs CODE STATUS -Full code Charges/Coding Visit Charges Inpatient E&M: 18682 Subs Hosp L2
[2022-03-08 13:27] VITALS: BP 153/101; PULSE 109; RESP 16; TEMP 37.3; O2SAT 97
[2022-03-08] MEDS: Pantoprazole Sodium 40 MG Tablet PO (14:58)
--- NOTE | 2022-03-08 16:18 | NURSING ---
Spoke with Dr Shafer orders to change NPO diet to regular diet and okay to give lovenox
[2022-03-08] MEDS: Enoxaparin 40 MG/0.4 ML Syringe SC (16:21)
[2022-03-08 17:50] VITALS: BP 139/95; PULSE 98; RESP 16; TEMP 37.1; O2SAT 99
[2022-03-08 21:01] VITALS: BP 162/98; PULSE 107; RESP 18; TEMP 37.5; O2SAT 97
[2022-03-09] VITALS (27 sets, daily range): BP systolic 91–159; BP diastolic 66–103; PULSE 99–168; RESP 16–27; TEMP 36.8–37.5; O2SAT 92–98; BMI 29.9
[2022-03-09] MEDS: 0.9% Normal Saline 1,000 ML 100 ML IV ×3 (02:25→20:01)
[2022-03-09] MEDS: Morphine 4 MG/ML Syringe IV (02:35)
[2022-03-09] MEDS: Pantoprazole Sodium 40 MG Tablet PO (09:46)
--- NOTE | 2022-03-09 10:24 | PCM.PN.HOSP ---
Subjective Subjective Doing well, no issues overnight. Did not receive his ERCP yesterday for the retained cystic duct stone therefore he will go down later this afternoon. Objective Data Objective Data Vital Signs: Vital Signs Temp Pulse Resp BP Pulse Ox 98.7 F 99 18 159/103 H 98 03/09/22 09:43 03/09/22 09:43 03/09/22 09:43 03/09/22 09:43 03/09/22 09:43 Oxygen Delivery Method Room Air Weight: 233 lb 3.985 oz Body Mass Index (BMI) 29.5 Intake & Output: Intake and Output for Last 24 Hours 03/08/22 03/09/22 03/10/22 03:59 03:59 03:59 Intake Total 3532.25 / 3532.25 3285.00 / 3285.00 Balance 3532.25 / 3532.25 3285.00 / 3285.00 Lab / Micro Data Result Diagrams: 03/08/22 04:40 03/08/22 04:40 Micro: Microbiology 03/06/22 08:40 Nasal Secretion SARS-CoV-2 Antigen (Rapid) - Final Physical Exam Const alert, oriented x3 and no apparent distress General Appearance: cooperative HEENT normocephalic and moist oral mucous membranes Eyes PERRL, EOMs intact bilaterally and conjunctivae normal Neck supple and no JVD Resp normal respiratory effort, no retractions, no use of accessory muscles and clear to auscultation bilaterally Auscultation: Negative for crackles, rales, rhonchi or wheezes Cardio regular rate, regular rhythm, S1 normal heart sound, S2 normal heart sound and no murmurs GI soft to palpation and non-distended; Negative for hepatosplenomegaly Palpation: tender Extremity no clubbing, cyanosis or edema Skin no rashes or lesions noted Skin Narrative: Incision CDI Neuro no focal motor deficits and no sensory deficits noted Psych affect normal Appearance: appropriate Assessment & Plan Assessment/Plan (1) RUQ abdominal pain: (2) Jaundice: (3) Choledocholithiasis with cholecystitis: (4) Transaminitis: (5) Gastric ulcer: PLAN: 1. Choledocholithiasis with cholecystitis with transaminitis and hyperbilirubinemia -ERCP done 03/06/2022 with removal of choledocholithiasis/biliary sphincterotomy/common bile duct dilation with stent placed which is temporary ?Repeat ERCP today for retained cystic duct stone -Patient was taken the OR 03/07/2022 for laparoscopic cholecystectomy with Dr. Pace -Continue n.p.o. -Continue as needed morphine while patient is n.p.o. -Continue IV fluids until p.o. intake is possible -Continue Zosyn 2. Gastric ulcer ? This was noted on the EGD with no signs of bleeding ? Avoid NSAIDs ? Continue with PPI DVT: Lovenox Charges/Coding Visit Charges Inpatient E&M: 88640 Subs Hosp L2
--- NOTE | 2022-03-09 14:40 | NURSING ---
Pt to ERCP via OR transporter.
--- NOTE | 2022-03-09 16:15 | RAD_ITS ---
ERCP biliary ductal system FINDINGS: There is a gastroscope identified in the upper abdomen and contrast is injected into the biliary tree. There are surgical clips in the gallbladder fossa. There is extension of guidewire into the biliary tree,. Contrast fills the biliary tree. There is no filling defect and there is no evidence of bowel obstruction. Contrast is seen within the adjacent duodenum. RAD/ERCP Biliary Only IMPRESSION: There are no filling defects in the biliary tree and the biliary tree is not dilated. Electronically Signed: Serafin Martinez MD at 23:07 EDT ,
--- NOTE | 2022-03-09 18:37 | EKG12_ITS ---
Test Reason : TACHY Blood Pressure : / mmHG Vent. Rate : 142 BPM Atrial Rate : 117 BPM P-R Int : 000 ms QRS Dur : 088 ms QT Int : 298 ms P-R-T Axes : 000 060 -47 degrees QTc Int : 458 ms Atrial fibrillation with premature ventricular or aberrantly conducted complexes Nonspecific ST and T wave abnormality Abnormal ECG When compared with ECG of 06-MAR-2022 05:18, Atrial fibrillation has replaced Sinus rhythm Vent. rate has increased BY 79 BPM Nonspecific T wave abnormality now evident in Inferior leads Nonspecific T wave abnormality now evident in Anterolateral leads Confirmed by HAYLEE HO, SHARON ([id number]), medical editor MACKENZIE BENITEZ ([id number]) on 03/13/2022 8:23:40 AM Referred By: PREETHI Confirmed By:SHARON LEACH MD
--- NOTE | 2022-03-09 18:39 | SUR.PHASEI ---
PT TO PACU AND HEART RATE `180'S-200'S DR ORO AT BEDSIDE. PUT ON OXYGEN PT DENIES CP OR SOB EKG AND BLOOD WORK DONE DR ORO GAVE PATIENT BREVABLOCK / ESMOLOL 50MG NO CHANGE IN HEART RATE PT GIVEN 12MG OF ADENOSINE AT 1825- NO CHANGE IN HEART RATE- CONT IN 180'S 182- GIVEN 5MG CARDIZEM 1828- GIVEN 5MG CARDIZEM 182-GIVEN 5MG OF CARDIZEM 1829-GIVEN 5MG OF CARDIZEM 183 - GIVEN 5MG OF CARDIZEM CARDIZEM GTT STARTED AT 1840 AT 15MG/H
--- NOTE | 2022-03-09 18:45 | ECHOD_ITS ---
Reason For Study: PAF Procedure This was a 2D Doppler, Color Flow transthoracic echocardiogram. The exam was of adequate technical quality. Exam performed portable in patient room. Left Ventricle Normal LV size. Left ventricular systolic function is normal. The estimated ejection fraction is 60 %. No evidence for diastolic dysfunction. No regional wall motion abnormalities noted. Right Ventricle Normal RV size. Normal systolic function. Atria Normal left atrium. Normal right atrium. No doppler evidence for ASD. Mitral Valve There is no mitral annular calcification. Normal mitral valve. Trivial mitral valve insufficiency. Tricuspid Valve Normal tricuspid valve. Trivial tricuspid valve insufficiency. Right ventricular systolic pressure estimated to be 20 mmHg. Aortic Valve Trisinus/trileaflet aortic valve. Normal aortic valve. Pulmonic Valve The pulmonic valve is not well visualized. Great Vessels Normal sized aortic root. Pericardium/Pleural No pericardial effusion. MMode/2D Measurements & Calculations LVIDd: 5.3 cm IVSd: 0.97 cm Ao root diam: 3.0 cm LVIDs: 3.6 cm LVPWd: 1.0 cm RVDd: 3.6 cm FS: 33.4 % LAV(MOD-bp): 37.8 ml LVAd ap4: 32.3 cm2 SV(MOD-sp4): 58.3 ml LAV(MOD-bp) Indexed: 16.3 ml/m2 LVLd ap4: 8.3 cm LAV(MOD-sp2): 51.8 ml EDV(MOD-sp4): 102.3 ml LAV(MOD-sp4): 26.6 ml EDV(sp4-el): 106.5 ml LVAs ap4: 18.3 cm2 LVLs ap4: 6.5 cm ESV(MOD-sp4): 44.0 ml ESV(sp4-el): 43.4 ml EF(MOD-sp4): 57.0 % EF(sp4-el): 59.2 % SV(sp4-el): 63.1 ml LA A4 area: 12.2 cm2 LA dimension(2D): 3.5 cm RA A4 area: 14.0 cm2 Doppler Measurements & Calculations MV E max xavier: 78.5 cm/sec Lat Peak E' Xavier: 13.7 cm/sec Med Peak E' Xavier: 10.9 cm/sec MV A max xavier: 48.7 cm/sec E/E' lat: 5.7 E/E' med: 7.2 MV E/A: 1.6 Ao V2 max: 137.5 cm/sec LV V1 max: 115.1 cm/sec PA V2 max: 83.5 cm/sec Ao max P.6 mmHg LV V1 max P.3 mmHg Ao V2 mean: 98.8 cm/sec Ao mean P.3 mmHg Ao V2 VTI: 28.1 cm TR max xavier: 203.4 cm/sec TR max P.6 mmHg ECHO/Echo Complete Interpretation Summary Left ventricular systolic function is normal. The estimated ejection fraction is 60 %. Trivial mitral valve insufficiency. Trivial tricuspid valve insufficiency. Right ventricular systolic pressure estimated to be 20 mmHg. No evidence for diastolic dysfunction. Ordering Physician: Lili Walls Referring Physician: Jessica Ricardo Performed By: Amina Goff, AMOS, RVT
--- NOTE | 2022-03-09 18:46 | PCM.HOSP.N ---
Hospitalist Note Patient postoperatively in PACU with heart rate increase suddenly to 200, BP remained stable, limited medications in the PACU per discussion with anesthesiologist with initially administration of adenosine 12 mg with decrease to 80s however patient quickly returned into the 150s with anesthesia remarking that rhythm was consistent with atrial fibrillation when rate had decreased. Patient was administered a loading bolus 25 mg Cardizem and placed on a drip with rate improvement varying 130s currently per discussions. We will plan admission to PCU, maintain on catalyst recovery operator, cycle cardiac enzymes, obtain magnesium and TSH levels, obtain echocardiogram, hold on any anticoagulation given recent OR. Daytime hospitalist updated on current events.
[2022-03-09 19:11] LABS: Anion Gap 4 (5-15); BUN 12 mg/dL (7-18); BUN/Creat Ratio 15.1 RATIO (10-20); Calcium,Total 8.3 mg/dL (8.5-10.1); Chloride 105 mmol/L (98-107); EST Glomerular Filtration Rate 113 mL/min (>60); Est Glom Filt Rate - Afr Amer 137 mL/min (>60); Estimated Creatinine Clearance 141.28 ml/min; Glucose 111 mg/dL (74-106); Potassium 3.6 mmol/L (3.5-5.1); Sodium Level 138 mmol/L (136-145)
[2022-03-09 19:20] LABS: Troponin-I HS < 3 pg/mL (3.0-78.0)
[2022-03-09 19:45] LABS: Phosphorus 2.6 mg/dL (2.5-4.9)
--- NOTE | 2022-03-09 19:54 | NURSING ---
Report received from PACU, noted that pt is on cardizem at 20 with no response in reduction of HR. Operational Review Sergeant Rosibel notified about concern in getting pt d/t our cardizem max rate of 15 and possibility of running at 20 only with cardiology approval. Super investigating and requesting cardiology consult.
[2022-03-09] MEDS: Enoxaparin 40 MG/0.4 ML Syringe SC (20:06)
[2022-03-09 20:07] LABS: Absolute Lymphocyte Count 0.46 X10^3/uL (0.83-4.51); Absolute Neutrophil Count 10.5 X10^3/uL (2.0-7.7); Basophil# 0.01 X10^3/uL; Basophil% 0.1 % (0-1); Hematocrit 38.4 % (40-54); Lymphocyte # 0.46 X10^3/ul (0.83-4.51); Lymphocyte % 3.9 % (19-41); Mean Corp Hgb Conc 33.9 g/dL (32-36); Mean Corpuscular Hgb 29.9 pg (27.0-32.0); Mean Corpuscular Volume 88.3 fL (80-94); Mean Platelet Vol. 10.4 fl (6.2-12.0); Monocyte# 0.59 X10^3/uL; Monocyte% 5.1 % (0-10); NRBC Flagged by Analyzer 0 % (0-5); Neutrophil # 10.53 X10^3/uL (2.7-7.7); Neutrophil % 90.1 % (47-70); POSITIVE DIFFERENTIAL YES; Platelet Count 167 K/mm3 (150-450); RBC Distribution Width CV 13.1 % (11.6-14.6); RBC Distribution Width SD 42.4 fl (35.1-43.9); Red Blood Count 4.35 M/mm3 (4.6-6.2); White Blood Count 11.7 K/mm3 (4.4-11.0)
[2022-03-09 20:09] LABS: Differential Indicated SCAN CRITERIA MET
--- NOTE | 2022-03-09 20:30 | NURSING ---
Pt arrived from PACU and this RN assumed care.
[2022-03-09 20:32] LABS: T4 Free Direct 1.23 ng/dL (0.76-1.46); Thyroid Stim Hormone (TSH) 0.53 uIU/mL (0.358-3.74)
[2022-03-09 20:34] LABS: Troponin-I HS 7 pg/mL (3.0-78.0)
[2022-03-09 20:56] LABS: Differential Comment SCANNED
[2022-03-09] MEDS: Digoxin 250 MCG/ML Ampul 375 MCG IV (21:42)
[2022-03-09 21:45] LABS: D-Dimer Quantitative (DVT/PE) 3.39 FEU/ug/m (0.27-0.49)
[2022-03-09] MEDS: Potassium Chloride 10mEq/100mL 10 MEQ/100 ML IV.SOLN. 100 MEQ IV BOLUS ×2 (21:54→23:17)
[2022-03-09] MEDS: 0.9% Saline Lock 10 ML Syringe IV (22:03)
--- NOTE | 2022-03-09 22:25 | CT_ITS ---
EXAM: CT ANGIOGRAPHY CHEST WITHOUT AND WITH INTRAVENOUS CONTRAST CLINICAL INDICATION: Elevated D-dimer TECHNIQUE: Helically acquired angiography images were obtained of the chest without and with intravenous contrast. This CT exam was performed using one or more of the following dose reduction techniques: automated exposure control, adjustment of the mA and/or kV according to patient size, and/or use of iterative reconstruction technique. This report was created using [employer] report generation technology. MIP reconstructed images were created and reviewed. CONTRAST: IV 100mL Isovue-370 COMPARISON: None. FINDINGS: PULMONARY ARTERIES: Unremarkable. Normal in caliber. No evidence of pulmonary embolism. AORTA: Unremarkable. Normal in caliber. No evidence of dissection. GREAT VESSELS OF AORTIC ARCH: Unremarkable. Normal in caliber. No evidence of dissection. LUNGS AND PLEURAL SPACES: There is bilateral lower lobe consolidation compatible with atelectasis or pneumonia. There are trace bilateral effusions. No mass. HEART: Unremarkable. Heart size is normal. No pericardial effusion. No signs of right heart strain, ratio of right ventricle to left ventricle measures less than 1. MEDIASTINUM: Unremarkable. No mediastinal or hilar adenopathy. Esophagus is unremarkable. No hiatal hernia. THYROID: Unremarkable. No thyroid lesions. BONES/JOINTS: Unremarkable. No suspicious lytic or blastic abnormality. CT/CTA Chest W/WO Contrast IMPRESSION: 1. No evidence of pulmonary embolus. 2. Trace bilateral effusions with bilateral lower lobe consolidation which may represent atelectasis or developing bilateral pneumonia. Electronically Signed: Oscar Arias MD at 0:32 EDT ,
[2022-03-09] MEDS: 0.9% Normal Saline 1,000 ML 999 ML IV (23:54)
[2022-03-10] VITALS (17 sets, daily range): BP systolic 104–132; BP diastolic 69–85; PULSE 66–111; RESP 16–24; TEMP 36.4–37.1; O2SAT 94–99
[2022-03-10] MEDS: Potassium Chloride 10mEq/100mL 10 MEQ/100 ML IV.SOLN. 100 MEQ IV BOLUS ×2 (00:49→02:05)
[2022-03-10] MEDS: 0.9% Normal Saline 1,000 ML 100 ML IV ×3 (00:56→20:34)
[2022-03-10 01:31] LABS: Troponin-I HS 4 pg/mL (3.0-78.0)
[2022-03-10] MEDS: Digoxin 250 MCG/ML Ampul IV (02:03)
[2022-03-10 04:52] LABS: Absolute Lymphocyte Count 0.86 X10^3/uL (0.83-4.51); Absolute Neutrophil Count 8.4 X10^3/uL (2.0-7.7); Basophil# 0.01 X10^3/uL; Basophil% 0.1 % (0-1); Hematocrit 37.8 % (40-54); Hemoglobin 12.7 g/dL (13.0-16.5); Lymphocyte # 0.86 X10^3/ul (0.83-4.51); Lymphocyte % 8.4 % (19-41); Mean Corp Hgb Conc 33.6 g/dL (32-36); Mean Corpuscular Hgb 29.5 pg (27.0-32.0); Mean Corpuscular Volume 87.9 fL (80-94); Mean Platelet Vol. 10.7 fl (6.2-12.0); Monocyte# 0.94 X10^3/uL; Monocyte% 9.2 % (0-10); NRBC Flagged by Analyzer 0 % (0-5); Neutrophil # 8.37 X10^3/uL (2.7-7.7); Neutrophil % 81.8 % (47-70); Platelet Count 188 K/mm3 (150-450); RBC Distribution Width CV 13.2 % (11.6-14.6); RBC Distribution Width SD 42.7 fl (35.1-43.9); White Blood Count 10.2 K/mm3 (4.4-11.0)
[2022-03-10 05:21] LABS: ALB/GLOB Ratio 0.6 RATIO (0.9-2.4); AST(SGOT) 68 U/L (15-37); Alanine Aminotransfer ALT/SGPT 180 U/L (16-61); Albumin, Serum 2.2 g/dL (3.2-5.0); Alkaline Phosphatase 167 U/L (45-117); Anion Gap 3 (5-15); BUN 10 mg/dL (7-18); BUN/Creat Ratio 14.9 RATIO (10-20); Calcium,Total 7.9 mg/dL (8.5-10.1); Chloride 106 mmol/L (98-107); Creatinine, Serum 0.67 mg/dL (0.70-1.30); EST Glomerular Filtration Rate 138 mL/min (>60); Est Glom Filt Rate - Afr Amer 168 mL/min (>60); Estimated Creatinine Clearance 168.69 ml/min; Globulin 3.8 g/dL (2.2-4.2); Glucose 119 mg/dL (74-106); Potassium 4.1 mmol/L (3.5-5.1); Sodium Level 137 mmol/L (136-145); Thyroid Stim Hormone (TSH) 0.68 uIU/mL (0.358-3.74)
--- NOTE | 2022-03-10 05:55 | EKG12_ITS ---
Test Reason : AM EKG Blood Pressure : / mmHG Vent. Rate : 075 BPM Atrial Rate : 075 BPM P-R Int : 134 ms QRS Dur : 094 ms QT Int : 392 ms P-R-T Axes : 007 049 036 degrees QTc Int : 437 ms Normal sinus rhythm Nonspecific T wave abnormality Abnormal ECG When compared with ECG of 09-MAR-2022 18:36, MANUAL COMPARISON REQUIRED, DATA IS UNCONFIRMED Confirmed by HAYLEE HO, SHARON ([id number]), technical writer and editor MACKENZIE BENITEZ ([id number]) on 03/14/2022 9:52:17 AM Referred By: DR ALMEIDA Confirmed By:SHARON LEACH MD
--- NOTE | 2022-03-10 08:52 | PN.SURG_ITS ---
Subjective Subjective Patient seen and examined during AM rounds. He was noted to have an episode of A. fib with RVR following his second ERCP procedure yesterday. Was transferred to PCU for closer monitoring. He denies being symptomatic during that time or presently. He states that his abdominal discomfort is improved this morning. He also claims an appetite this morning. Objective Data Objective Data Vital Signs: Vital Signs Temp Pulse Resp BP Pulse Ox 97.5 F L 67 18 124/80 H 96 03/10/22 08:00 03/10/22 08:00 03/10/22 08:00 03/10/22 08:00 03/10/22 08:00 Oxygen Flow Rate (L/min) 2 Oxygen Delivery Method Room Air Weight: 236 lb 5.369 oz Body Mass Index (BMI) 29.9 Intake & Output: Intake and Output for Last 24 Hours 03/08/22 03/09/22 03/10/22 23:59 23:59 23:59 Intake Total 2484.75 / 2484.75 3260.54 / 3293.84 2134.59 / 2134.59 Output Total 300 / 300 850 / 850 Balance 2484.75 / 2484.75 2960.54 / 2993.84 1284.59 / 1284.59 Lab / Micro Data Result Diagrams: 03/10/22 04:08 03/10/22 04:08 Labs: Laboratory Results - last 24 hr 03/09/22 18:22: Sodium 138, Potassium 3.6, Chloride 105, Carbon Dioxide 29.0, Anion Gap 4 L, BUN 12, Creatinine 0.80, Estim Creat Clear Calc 141.28, Est GFR (MDRD) Af Amer 137, Est GFR (MDRD) Non-Af 113, BUN/Creatinine Ratio 15.1, Glucose 111 H, Calcium 8.3 L, Magnesium 2.0 03/09/22 18:22: Troponin I High Sens < 3 L 03/09/22 18:22: Phosphorus 2.6 03/09/22 19:55: WBC 11.7 H, RBC 4.35 L, Hgb 13.0, Hct 38.4 L, MCV 88.3, MCH 29.9, MCHC 33.9, RDW Std Deviation 42.4, RDW Coeff of Chan 13.1, Plt Count 167, MPV 10.4, Immature Gran % (Auto) 0.800, Neut % (Auto) 90.1 H, Lymph % (Auto) 3.9 L, [place] % (Auto) 5.1, Eos % (Auto) 0.0, Baso % (Auto) 0.1, Absolute Neuts (auto) 10.5 H, Absolute Lymphs (auto) 0.46 L, Nucleated RBC % 0, Differential Comment SCANNED 03/09/22 19:55: TSH 0.53, Free T4 1.23 03/09/22 19:55: Troponin I High Sens 7 03/09/22 19:55: D-Dimer Quant (PE/DVT) 3.39 H* 03/09/22 20:40: Free T3 pg/dL 1.0 L 03/10/22 00:50: Troponin I High Sens 4 03/10/22 04:08: WBC 10.2, RBC 4.30 L, Hgb 12.7 L, Hct 37.8 L, MCV 87.9, MCH 29.5, MCHC 33.6, RDW Std Deviation 42.7, RDW Coeff of Chan 13.2, Plt Count 188, MPV 10.7, Immature Gran % (Auto) 0.500, Neut % (Auto) 81.8 H, Lymph % (Auto) 8.4 L, [place] % (Auto) 9.2, Eos % (Auto) 0.0, Baso % (Auto) 0.1, Absolute Neuts (auto) 8.4 H, Absolute Lymphs (auto) 0.86, Nucleated RBC % 0 03/10/22 04:08: Sodium 137, Potassium 4.1, Chloride 106, Carbon Dioxide 28.0, Anion Gap 3 L, BUN 10, Creatinine 0.67 L, Estim Creat Clear Calc 168.69, Est GFR (MDRD) Af Amer 168, Est GFR (MDRD) Non-Af 138, BUN/Creatinine Ratio 14.9, Glucose 119 H, Calcium 7.9 L, Total Bilirubin 3.80 H, AST 68 H, ALT 180 H, Alkaline Phosphatase 167 H, Total Protein 6.0 L, Albumin 2.2 L, Globulin 3.8, Albumin/Globulin Ratio 0.6 L, TSH 0.68 Micro: Microbiology 03/06/22 08:40 Nasal Secretion SARS-CoV-2 Antigen (Rapid) - Final Radiography Diagnostic Testing: Radiology Impression ERCP X-Ray 03/09/22 16:15 IMPRESSION: There are no filling defects in the biliary tree and the biliary tree is not dilated. Electronically Signed: Serafin Martinez MD at 23:07 EDT , Chest CTA 03/09/22 22:25 IMPRESSION: 1. No evidence of pulmonary embolus. 2. Trace bilateral effusions with bilateral lower lobe consolidation which may represent atelectasis or developing bilateral pneumonia. Electronically Signed: Oscar Arias MD at 0:32 EDT , Physical Exam Const no apparent distress Resp normal respiratory effort Cardio Cardio Narrative: Patient appears to have a regular rate with monomorphic P waves per telemetry GI GI Narrative: Nondistended, operative dressings remain in place and are clean and dry. He has mild tenderness about his umbilical incision and subxiphoid incision. Assessment & Plan Assessment/Plan (1) S/P laparoscopic cholecystectomy: PLAN: Patient postoperative day 3 from laparoscopic cholecystectomy with aborted cholangiogram and repair of umbilical hernia. Patient further improved from a symptom standpoint regarding his right upper quadrant discomfort?and is basically now only bothered by expected discomfort from his incisions at the abdominal wall. Operative dressings can now be removed. From a surgical standpoint, could be advanced to regular diet and DC antibiotic coverage. Patient currently awaiting further evaluation for arrhythmia overnight. Should patient discharge home today, would request follow-up in 1 week to evaluate wound healing. (2) S/P umbilical hernia repair, follow-up exam: PLAN: Patient is encouraged to keep his surgical dressing in place 3 days postop and adhere to lifting restrictions of no more weight than 10 pounds for the next 4 weeks. For both the umbilical hernia repair and cholecystectomy, would like to follow-up with patient in clinic in 7 to 10 days postop. (3) Cystic duct calculus: PLAN: Status post repeat ERCP with GI yesterday for lithotripsy procedure. Laboratories continue appropriate downtrend. Charges/Coding Visit Charges Inpatient E&M: 31646 Subs Hosp L2
[2022-03-10] MEDS: Enoxaparin 40 MG/0.4 ML Syringe SC (09:17)
[2022-03-10] MEDS: Pantoprazole Sodium 40 MG Tablet PO (09:17)
--- NOTE | 2022-03-10 13:09 | PCM.PN.HOSP ---
Subjective Subjective Doing well, abdominal pain is significantly improved. He did go into A. fib last night this appears to have resolved with amiodarone and Cardizem drips. General surgery feels that he can be advanced to regular diet. Objective Data Objective Data Vital Signs: Vital Signs Temp Pulse Resp BP Pulse Ox 98.6 F 76 20 H 123/79 H 96 03/10/22 11:35 03/10/22 11:35 03/10/22 11:35 03/10/22 11:35 03/10/22 11:35 Oxygen Flow Rate (L/min) 2 Oxygen Delivery Method Room Air Weight: 236 lb 5.369 oz Body Mass Index (BMI) 29.9 Intake & Output: Intake and Output for Last 24 Hours 03/09/22 03/10/22 03/11/22 03:59 03:59 03:59 Intake Total 3285.00 / 3285.00 4173.67 / 4173.67 1791.06 / 1791.06 Output Total 300 / 300 1500 / 1500 Balance 3285.00 / 3285.00 3873.67 / 3873.67 291.06 / 291.06 Lab / Micro Data Result Diagrams: 03/10/22 04:08 03/10/22 04:08 Labs: Laboratory Results - last 24 hr 03/09/22 18:22: Sodium 138, Potassium 3.6, Chloride 105, Carbon Dioxide 29.0, Anion Gap 4 L, BUN 12, Creatinine 0.80, Estim Creat Clear Calc 141.28, Est GFR (MDRD) Af Amer 137, Est GFR (MDRD) Non-Af 113, BUN/Creatinine Ratio 15.1, Glucose 111 H, Calcium 8.3 L, Magnesium 2.0 03/09/22 18:22: Troponin I High Sens < 3 L 03/09/22 18:22: Phosphorus 2.6 03/09/22 19:55: WBC 11.7 H, RBC 4.35 L, Hgb 13.0, Hct 38.4 L, MCV 88.3, MCH 29.9, MCHC 33.9, RDW Std Deviation 42.4, RDW Coeff of Chan 13.1, Plt Count 167, MPV 10.4, Immature Gran % (Auto) 0.800, Neut % (Auto) 90.1 H, Lymph % (Auto) 3.9 L, [place] % (Auto) 5.1, Eos % (Auto) 0.0, Baso % (Auto) 0.1, Absolute Neuts (auto) 10.5 H, Absolute Lymphs (auto) 0.46 L, Nucleated RBC % 0, Differential Comment SCANNED 03/09/22 19:55: TSH 0.53, Free T4 1.23 03/09/22 19:55: Troponin I High Sens 7 03/09/22 19:55: D-Dimer Quant (PE/DVT) 3.39 H* 03/09/22 20:40: Free T3 pg/dL 1.0 L 03/10/22 00:50: Troponin I High Sens 4 03/10/22 04:08: WBC 10.2, RBC 4.30 L, Hgb 12.7 L, Hct 37.8 L, MCV 87.9, MCH 29.5, MCHC 33.6, RDW Std Deviation 42.7, RDW Coeff of Chan 13.2, Plt Count 188, MPV 10.7, Immature Gran % (Auto) 0.500, Neut % (Auto) 81.8 H, Lymph % (Auto) 8.4 L, [place] % (Auto) 9.2, Eos % (Auto) 0.0, Baso % (Auto) 0.1, Absolute Neuts (auto) 8.4 H, Absolute Lymphs (auto) 0.86, Nucleated RBC % 0 03/10/22 04:08: Sodium 137, Potassium 4.1, Chloride 106, Carbon Dioxide 28.0, Anion Gap 3 L, BUN 10, Creatinine 0.67 L, Estim Creat Clear Calc 168.69, Est GFR (MDRD) Af Amer 168, Est GFR (MDRD) Non-Af 138, BUN/Creatinine Ratio 14.9, Glucose 119 H, Calcium 7.9 L, Total Bilirubin 3.80 H, AST 68 H, ALT 180 H, Alkaline Phosphatase 167 H, Total Protein 6.0 L, Albumin 2.2 L, Globulin 3.8, Albumin/Globulin Ratio 0.6 L, TSH 0.68 Micro: Microbiology 03/06/22 08:40 Nasal Secretion SARS-CoV-2 Antigen (Rapid) - Final Radiography Diagnostic Testing: Radiology Impression ERCP X-Ray 03/09/22 16:15 IMPRESSION: There are no filling defects in the biliary tree and the biliary tree is not dilated. Electronically Signed: Serafin Martinez MD at 23:07 EDT , Chest CTA 03/09/22 22:25 IMPRESSION: 1. No evidence of pulmonary embolus. 2. Trace bilateral effusions with bilateral lower lobe consolidation which may represent atelectasis or developing bilateral pneumonia. Electronically Signed: Oscar Arias MD at 0:32 EDT , Physical Exam Narrative Const alert, oriented x3 and no apparent distress General Appearance: cooperative HEENT normocephalic and moist oral mucous membranes Eyes PERRL, EOMs intact bilaterally and conjunctivae normal Neck supple and no JVD Resp normal respiratory effort, no retractions, no use of accessory muscles and clear to auscultation bilaterally Auscultation: Negative for crackles, rales, rhonchi or wheezes Cardio regular rate, regular rhythm, S1 normal heart sound, S2 normal heart sound and no murmurs GI soft to palpation and non-distended; Negative for hepatosplenomegaly Palpation: tender Extremity no clubbing, cyanosis or edema Skin no rashes or lesions noted Skin Narrative: Incision CDI Neuro no focal motor deficits and no sensory deficits noted Psych affect normal Appearance: appropriate Assessment & Plan Assessment/Plan (1) RUQ abdominal pain: (2) Jaundice: (3) Choledocholithiasis with cholecystitis: (4) Transaminitis: (5) Gastric ulcer: PLAN: 1. Choledocholithiasis with cholecystitis with transaminitis and hyperbilirubinemia -ERCP done 03/06/2022 with removal of choledocholithiasis/biliary sphincterotomy/common bile duct dilation with stent placed which is temporary ? ERCP 03/09/2022 with stone removal -Patient was taken the OR 03/07/2022 for laparoscopic cholecystectomy with Dr. Pace ?Advance to regular diet today -Continue as needed morphine while patient is n.p.o. -Continue IV fluids until p.o. intake is stable -We will discontinue Zosyn 2. Gastric ulcer ? This was noted on the EGD with no signs of bleeding ? Avoid NSAIDs ? Continue with PPI 3. A. fib with RVR ? She was noted to have A. fib after his ERCP ? She is now in normal sinus, his amiodarone and Cardizem drips have been discontinued ? Transition to twice daily Cardizem and if he can tolerate this then can transition to long-acting Cardizem ? His Servando score is a 0 therefore he does not need anticoagulation DVT: Lovenox Charges/Coding Visit Charges Inpatient E&M: 22413 Subs Hosp L2
--- NOTE | 2022-03-10 16:06 | PCM.PROGNOTE ---
Subjective Subjective Patient is not have any abdominal pain at this time. He has not had any nausea. He is tolerating a diet Objective Data Objective Data Vital Signs: Vital Signs Temp Pulse Resp BP Pulse Ox 98.6 F 84 20 H 123/79 H 96 03/10/22 11:35 03/10/22 14:56 03/10/22 11:35 03/10/22 11:35 03/10/22 11:35 Oxygen Flow Rate (L/min) 2 Oxygen Delivery Method Room Air Weight: 236 lb 5.369 oz Body Mass Index (BMI) 29.9 Intake & Output: Intake and Output for Last 24 Hours 03/08/22 03/09/22 03/10/22 23:59 23:59 23:59 Intake Total 2484.75 / 2484.75 3260.54 / 3293.84 3754.19 / 3754.19 Output Total 300 / 300 1500 / 1500 Balance 2484.75 / 2484.75 2960.54 / 2993.84 2254.19 / 2254.19 Lab / Micro Data Result Diagrams: 03/10/22 04:08 03/10/22 04:08 Labs: Laboratory Results - last 24 hr 03/09/22 18:22: Sodium 138, Potassium 3.6, Chloride 105, Carbon Dioxide 29.0, Anion Gap 4 L, BUN 12, Creatinine 0.80, Estim Creat Clear Calc 141.28, Est GFR (MDRD) Af Amer 137, Est GFR (MDRD) Non-Af 113, BUN/Creatinine Ratio 15.1, Glucose 111 H, Calcium 8.3 L, Magnesium 2.0 03/09/22 18:22: Troponin I High Sens < 3 L 03/09/22 18:22: Phosphorus 2.6 03/09/22 19:55: WBC 11.7 H, RBC 4.35 L, Hgb 13.0, Hct 38.4 L, MCV 88.3, MCH 29.9, MCHC 33.9, RDW Std Deviation 42.4, RDW Coeff of Chan 13.1, Plt Count 167, MPV 10.4, Immature Gran % (Auto) 0.800, Neut % (Auto) 90.1 H, Lymph % (Auto) 3.9 L, [place] % (Auto) 5.1, Eos % (Auto) 0.0, Baso % (Auto) 0.1, Absolute Neuts (auto) 10.5 H, Absolute Lymphs (auto) 0.46 L, Nucleated RBC % 0, Differential Comment SCANNED 03/09/22 19:55: TSH 0.53, Free T4 1.23 03/09/22 19:55: Troponin I High Sens 7 03/09/22 19:55: D-Dimer Quant (PE/DVT) 3.39 H* 03/09/22 20:40: Free T3 pg/dL 1.0 L 03/10/22 00:50: Troponin I High Sens 4 03/10/22 04:08: WBC 10.2, RBC 4.30 L, Hgb 12.7 L, Hct 37.8 L, MCV 87.9, MCH 29.5, MCHC 33.6, RDW Std Deviation 42.7, RDW Coeff of Chan 13.2, Plt Count 188, MPV 10.7, Immature Gran % (Auto) 0.500, Neut % (Auto) 81.8 H, Lymph % (Auto) 8.4 L, [place] % (Auto) 9.2, Eos % (Auto) 0.0, Baso % (Auto) 0.1, Absolute Neuts (auto) 8.4 H, Absolute Lymphs (auto) 0.86, Nucleated RBC % 0 03/10/22 04:08: Sodium 137, Potassium 4.1, Chloride 106, Carbon Dioxide 28.0, Anion Gap 3 L, BUN 10, Creatinine 0.67 L, Estim Creat Clear Calc 168.69, Est GFR (MDRD) Af Amer 168, Est GFR (MDRD) Non-Af 138, BUN/Creatinine Ratio 14.9, Glucose 119 H, Calcium 7.9 L, Total Bilirubin 3.80 H, AST 68 H, ALT 180 H, Alkaline Phosphatase 167 H, Total Protein 6.0 L, Albumin 2.2 L, Globulin 3.8, Albumin/Globulin Ratio 0.6 L, TSH 0.68 Micro: Microbiology 03/06/22 08:40 Nasal Secretion SARS-CoV-2 Antigen (Rapid) - Final Radiography Diagnostic Testing: Radiology Impression ERCP X-Ray 03/09/22 16:15 IMPRESSION: There are no filling defects in the biliary tree and the biliary tree is not dilated. Electronically Signed: Serafin Martinez MD at 23:07 EDT , Echocardiogram 03/09/22 18:45 Interpretation Summary Left ventricular systolic function is normal. The estimated ejection fraction is 60 %. Trivial mitral valve insufficiency. Trivial tricuspid valve insufficiency. Right ventricular systolic pressure estimated to be 20 mmHg. No evidence for diastolic dysfunction. Ordering Physician: Lili Walls Referring Physician: Jessica Ricardo Performed By: Amina Goff, AMOS, RVT Chest CTA 03/09/22 22:25 IMPRESSION: 1. No evidence of pulmonary embolus. 2. Trace bilateral effusions with bilateral lower lobe consolidation which may represent atelectasis or developing bilateral pneumonia. Electronically Signed: Oscar Arias MD at 0:32 EDT , Physical Exam Const alert General Appearance: cooperative Orientation / Consciousness: oriented to person HEENT hearing grossly normal bilaterally Head and Scalp: normal to inspection Face and Sinus: face symmetric Nose: external nose normal Mouth: oral and palatal mucosa normal Eyes conjunctivae normal General Eye: normal appearance of both eyes Neck full ROM General: normal visual inspection Lymph Lymphatic: no lymphadenopathy noted Chest inspection of chest normal and palpation of chest normal Chest: symmetrical chest wall rise Resp normal respiratory effort Effort and Inspection: able to speak in complete sentences Cardio regular rate GI non-distended Percussion: normal to percussion Rectal Exam: deferred Neuro Speech: speech normal Gait (Neuro): normal gait Assessment & Plan Assessment/Plan (1) Cystic duct calculus: PLAN: Patient underwent ERCP yesterday with lithotripsy to cystic duct calculus. After the procedure he went into atrial fibrillation and was treated with antiarrhythmic therapy. He has been back in normal sinus rhythm. (2) Gastric ulcer: PLAN: Multiple gastric ulcers and duodenal ulcer seen on the first endoscopy thought to be secondary to complete biliary obstruction. (3) Choledocholithiasis with cholecystitis: PLAN: Removal of stones placement of biliary stent. He will need to have biliary stent removal or exchange in approximately 2-3 months Charges/Coding Visit Charges Inpatient E&M: 66301 Subs Hosp L2
[2022-03-10] MEDS: dilTIAZem 60 MG Tablet PO (22:11)
[2022-03-10] MEDS: 0.9% Saline Lock 10 ML Syringe IV (22:12)
[2022-03-11 03:00] VITALS: PULSE 89
[2022-03-11 04:00] VITALS: BP 133/79; PULSE 83; RESP 18; TEMP 36.9; O2SAT 97
[2022-03-11 04:01] VITALS: O2SAT 97
[2022-03-11] MEDS: 0.9% Normal Saline 1,000 ML 100 ML IV (06:43)
[2022-03-11 07:00] VITALS: PULSE 75
--- NOTE | 2022-03-11 09:42 | PN.SURG_ITS ---
Subjective Subjective Patient seen and examined during AM rounds. He is found sitting upright out of bed in the chair. He states that he has been feeling better today than he has in quite some time. He confirms that he tolerated a regular breakfast without subsequent nausea. He also had a normal bowel movement. Objective Data Objective Data Vital Signs: Vital Signs Temp Pulse Resp BP Pulse Ox 98.4 F 75 18 133/79 H 97 03/11/22 04:00 03/11/22 07:00 03/11/22 04:00 03/11/22 04:00 03/11/22 04:01 Oxygen Flow Rate (L/min) 2 Oxygen Delivery Method Room Air Weight: 236 lb 5.369 oz Body Mass Index (BMI) 29.9 Intake & Output: Intake and Output for Last 24 Hours 03/09/22 03/10/22 03/11/22 23:59 23:59 23:59 Intake Total 3260.54 / 3293.84 4960.86 / 4960.86 1000 / 1000 Output Total 300 / 300 2100 / 2100 Balance 2960.54 / 2993.84 2860.86 / 2860.86 1000 / 1000 Lab / Micro Data Result Diagrams: 03/10/22 04:08 03/10/22 04:08 Micro: Microbiology 03/06/22 08:40 Nasal Secretion SARS-CoV-2 Antigen (Rapid) - Final Radiography Diagnostic Testing: Radiology Impression Echocardiogram 03/09/22 18:45 Interpretation Summary Left ventricular systolic function is normal. The estimated ejection fraction is 60 %. Trivial mitral valve insufficiency. Trivial tricuspid valve insufficiency. Right ventricular systolic pressure estimated to be 20 mmHg. No evidence for diastolic dysfunction. Ordering Physician: Lili Walls Referring Physician: Jessica Ricardo Performed By: Amina Goff, AMOS, RVT Physical Exam Resp normal respiratory effort GI GI Narrative: Nondistended, operative dressings remain intact and are clean and dry. Beneath these dressings, patient Steri-Strips are in place and wounds are appropriate without erythema or drainage. There is some mild bruising about the umbilical port site incision. There is minimal tenderness with palpation. Assessment & Plan Assessment/Plan (1) S/P laparoscopic cholecystectomy: PLAN: Patient postoperative day 4 from laparoscopic cholecystectomy with aborted cholangiogram and repair of umbilical hernia. Patient further clinically improved. Surgical sites appropriate. Request outpatient follow-up in 1 week. Patient instructed to keep Steri-Strips in place but okay to begin s howering today. (2) S/P umbilical hernia repair, follow-up exam: PLAN: Lifting restrictions of no more weight than 10 pounds for the next 4 weeks. For both the umbilical hernia repair and cholecystectomy, would like to follow-up with patient in clinic in 7 to 10 days postop. (3) Cystic duct calculus: PLAN: Status post repeat ERCP with GI 2 days ago for lithotripsy procedure. Charges/Coding Visit Charges Inpatient E&M: 54697 Subs Hosp L2
[2022-03-11 09:45] VITALS: BP 137/88; PULSE 94; RESP 14; TEMP 36.6; O2SAT 97
[2022-03-11] MEDS: Pantoprazole Sodium 40 MG Tablet PO (09:46)
[2022-03-11] MEDS: dilTIAZem CD 120 MG Capsule PO (09:46)
[2022-03-11] MEDS: Enoxaparin 40 MG/0.4 ML Syringe SC (09:46)
--- NOTE | 2022-03-11 10:55 | DCINST_ITS ---
Discharge Instructions Diet Discharge Diet: No restrictions Activity Discharge Activity: May Shower and - (Do not lift more than 10 pounds for the next 4 weeks) Dressing / Incision Call your doctor if your incision/area has: Continuous Slow Oozing, Increased Redness and Foul Smelling Discharge Call your doctor if you observe: Fever of 101 or Higher, Shortness of breath, Dizziness, Fainting spells, Swelling in the ankles, Chest pain and Increased palpitations (irregular heartbeat) Follow Up Care Test Results: Test results from this visit will be discussed in further detail at your follow-up appointment, if applicable. Discharge Plan Admission Admit Date/Time: 03/06/22 00:11 Attending Provider: Thom Abraham Primary Care Provider: Jessica Ricardo NP Consulting Providers: Vincent Haddad Discharge Orders/Prescriptions Prescriptions: New pantoprazole 40 mg Tablet,Delayed Release (Dr/Ec) 40 mg PO DAILY 30 Days Qty: 30 RF: 0 diltiazem HCl 120 mg Capsule,Extended Release 24hr 120 mg PO DAILY 30 Days Qty: 30 RF: 0 Referrals / Follow Up: Jessica Ricardo NP, [employer]TAIN-C [Primary Care Provider] - Within 2 Weeks Disposition Disposition (needs filled in before D/C Order can be placed): Home, Self Care
--- NOTE | 2022-03-11 10:59 | PCM.DC.SUM ---
Providers Date of Admission: 03/06/22 Primary Care Physician: VALDEZ Loo Consultations 03/06/22 00:39 Consult: Gastroenterology Routine Consulting Provider: [facility] Reason for Consult: Jaundice EMERGENT Consult: No Notified: Yes Date Notified: 03/06/22 Time Notified: 00:12 Method of Notification: ED Physician Initiated Consult: General Surgery Routine Consulting Provider: Vincent Haddad Reason for Consult: Cholelithiasis EMERGENT Consult: No Notified: Yes Date Notified: 03/06/22 Time Notified: 00:13 Method of Notification: ED Physician Initiated Reason For Visit: afib with rvr Diagnosis Discharge Diagnosis (1) S/P laparoscopic cholecystectomy: Status: Acute Code(s): Z90.49 - Acquired absence of other specified parts of digestive tract (2) S/P umbilical hernia repair, follow-up exam: Status: Acute Code(s): Z09 - Encounter for follow-up examination after completed treatment for conditions other than malignant neoplasm (3) Cystic duct calculus: Status: Acute Code(s): K80.20 - Calculus of gallbladder without cholecystitis without obstruction Medications at Discharge Home Medications diltiazem HCl 120 mg PO DAILY 30 Days #30 cap 03/11/22 pantoprazole 40 mg PO DAILY 30 Days #30 tab 03/11/22 Hospital Course Operations cholecystecomy and ERCP Procedures 2-D Echocardiogram Summary of Care Provided Minutes Spent on Discharge: 45 Hospital Course: Per HPI: ODALYS CHANCE, is a 41 M who presents with complaints of jaundice and mild right upper quadrant pain. Patient states that he has experienced intermittent biliary colic over the past two years and has been receiving outpatient workup. Patient denies any other medical history. patient reports this is his first time experiencing jaundice. Hospital course: 1. Choledocholithiasis with cholecystitis and transaminitis and hyperbilirubinemia status post ERCP on 03/06/2022 and 03/09/2022 with lap cholecystectomy on 03/07/2022/gastric and duodenal ulcers?41-year-old male presented to the ER with abdominal pain and jaundice. He was found to have choledocholithiasis and gastroenterology was consulted and performed an ERCP with stone removal and then he underwent a lap hima however during the lap hima it was found that he had a stone in the cystic duct that they could not retrieve during surgery she had a repeat ERCP for stone retrieval then. Since that time he has been doing well, his jaundice has resolved and his abdominal pain is much improved. However after the second ERCP he did go into A. fib in PACU. In terms of his lap hima he is healed well, surgery is okay with him going home today, they are recommending a lifting restriction of 10 pounds for 4 weeks however he and can shower on discharge. No antibiotics on discharge needed. I did discuss with him the plan for discharge today and he expressed understanding of the risks and benefits of going home and would like to go home today. I will place him on Protonix and he will need follow-up as an outpatient with his PCP for monitoring and continued prescription, it was felt by GI that these were secondary to complete biliary obstruction. May benefit from outpatient GI follow-up. 2. A. fib with RVR? He went into A. fib in PACU per report by anesthesia. He was started on both Cardizem drip and an amiodarone drip. He did revert to normal sinus and the strips were discontinued and he was placed on Cardizem 120 mg daily. Given his age and his lack of other comorbidities he does not qualify for anticoagulation at this time. Recommend outpatient follow-up with his PCP. Physical Exam Narrative Const alert, oriented x3 and no apparent distress General Appearance: cooperative HEENT normocephalic and moist oral mucous membranes Eyes PERRL, EOMs intact bilaterally and conjunctivae normal Neck supple and no JVD Resp normal respiratory effort, no retractions, no use of accessory muscles and clear to auscultation bilaterally Auscultation: Negative for crackles, rales, rhonchi or wheezes Cardio regular rate, regular rhythm, S1 normal heart sound, S2 normal heart sound and no murmurs GI soft to palpation and non-distended; Negative for hepatosplenomegaly Palpation: tender Extremity no clubbing, cyanosis or edema Skin no rashes or lesions noted Skin Narrative: Incision CDI Neuro no focal motor deficits and no sensory deficits noted Psych affect normal Appearance: appropriate Weight / BMI Weight Weight: 236 lb 5.369 oz Body Mass Index (BMI) 29.9 ABG / Lab / Microbiology Data Result Diagrams: 03/10/22 04:08 03/10/22 04:08 Microbiology: Microbiology 03/06/22 08:40 Nasal Secretion SARS-CoV-2 Antigen (Rapid) - Final Radiography Diagnostic Testing: Radiology Impression Echocardiogram 03/09/22 18:45 Interpretation Summary Left ventricular systolic function is normal. The estimated ejection fraction is 60 %. Trivial mitral valve insufficiency. Trivial tricuspid valve insufficiency. Right ventricular systolic pressure estimated to be 20 mmHg. No evidence for diastolic dysfunction. Ordering Physician: Lili Walls Referring Physician: Jessica Ricardo Performed By: Amina Goff RDCS, RVT D/C Instructions Discharge Diet: No restrictions Call your doctor if your incision/area has: Continuous Slow Oozing, Increased Redness and Foul Smelling Discharge Call your doctor if you observe: Fever of 101 or Higher, Shortness of breath, Dizziness, Fainting spells, Swelling in the ankles, Chest pain and Increased palpitations (irregular heartbeat) Meaningful Use Info Meaningful Use Diagnoses (Choose all that apply): None applicable Discharge Plan Admission Admit Date/Time: 03/06/22 00:11 Attending Provider: Thom Abraham Primary Care Provider: Jessica Ricardo NP Consulting Providers: Vincent Haddad Discharge Orders/Prescriptions Prescriptions: New pantoprazole 40 mg Tablet,Delayed Release (Dr/Ec) 40 mg PO DAILY 30 Days Qty: 30 RF: 0 diltiazem HCl 120 mg Capsule,Extended Release 24hr 120 mg PO DAILY 30 Days Qty: 30 RF: 0 Referrals / Follow Up: Jessica Ricardo NP, [employer]CHITECT-C [Primary Care Provider] - Within 2 Weeks Disposition Disposition (needs filled in before D/C Order can be placed): Home, Self Care Charges/Coding Visit Charges Inpatient E&M: 71885 Disch Hosp
[2022-03-11 12:56] VITALS: BP 138/88; PULSE 85
== END 2022-03-11 13:00 | disposition home or self-care (01) | DRG 419 ==
LOC: ED 22:05 → MS3 03-06 00:09 → PCU 03-09 20:07
PROVIDERS: Anesthesiology; Family Medicine; Internal Medicine; Internal Medicine Gastroenterology; Nurse Practitioner Family; Surgery; Admitting Provider Hospitalist; Emergency Provider Emergency Medicine; PCP Nurse Practitioner; Visit Provider Family Medicine
PROC: 0FC98ZZ Extirpation of Matter from Common Bile Duct, Via Natural or Artificial Opening Endoscopic (ICD-10-PCS; CPT 43260; principal; 2022-03-06 15:00)
PROC: 0FT44ZZ Resection of Gallbladder, Percutaneous Endoscopic Approach (ICD-10-PCS; CPT 47610; principal; 2022-03-07 14:05)
PROC: 0FPB8DZ Removal of Intraluminal Device from Hepatobiliary Duct, Via Natural or Artificial Opening Endoscopic (ICD-10-PCS; CPT 43260; principal; 2022-03-09 15:55)
DX: K80.65 Calculus of gallbladder and bile duct with chronic cholecystitis with obstruction (principal); K26.9 Duodenal ulcer, unspecified as acute or chronic, without hemorrhage or perforation; I48.91 Unspecified atrial fibrillation; K42.9 Umbilical hernia without obstruction or gangrene; K21.00 Gastro-esophageal reflux disease with esophagitis, without bleeding; K25.9 Gastric ulcer, unspecified as acute or chronic, without hemorrhage or perforation; E66.3 Overweight; Z68.29 Body mass index [BMI] 29.0-29.9, adult; Z79.899 Other long term (current) drug therapy; Z87.891 Personal history of nicotine dependence
CPT/HCPCS: 36415; 71275; 74300; 74328; 74330; 76000; 76705; 80048; 80053; 80074; 80076; 82728; 83690; 83735; 84100; 84439; 84443; 84481; 84484; 85025; 85379; 85610; 86308; 87426; 88304; 93005; 93306; 99251; 99284; J7030; J7050; Q9967; A4216; C1726; C1769; G0463; J0153; J2405

== ENCOUNTER 2024-03-20 09:54 | Inpatient (IN) | payer BC, SELFPAY ==
[2024-03-20 09:54] VITALS: BP 133/91; PULSE 93; RESP 17; TEMP 35.7; O2SAT 98; BMI 30.2
--- NOTE | 2024-03-20 10:04 | CT_ITS ---
STUDY: CT ABDOMEN AND PELVIS WITH CONTRAST REASON FOR EXAM: Male, 43 years old. Upper abd pain, jaundice; s/p hima RADIATION DOSAGE (If Supplied By Facility): CTDIvol = ( 12.88 ) mGy, DLP = ( 770.83 ) mGy TECHNIQUE: Transaxial images were obtained from the dome of the diaphragm to the symphysis pubis without oral contrast. IV 100mL Isovue-300 was administered. Sagittal and coronal images were reconstructed. Individualized dose optimization techniques were used for this CT. COMPARISON: None. FINDINGS: The visualized lung bases are unremarkable. The visualized portions of the heart are within normal limits. Normal liver. There are surgical clips in the gallbladder fossa consistent with a prior cholecystectomy. A stent is seen within the common bile duct. The distal tip is in the third portion of the duodenum. The proximal portion of the common bile duct is dilated measuring 10.7 mm. Normal spleen. Normal pancreas. Normal bilateral adrenal glands. Normal right kidney. Normal left kidney. Normal visualized stomach. Normal small intestine. Normal colon. There are surgical clips in the region of the appendix consistent with a prior appendectomy. Normal abdominal aorta. Normal inferior vena cava. Normal retroperitoneum. Normal urinary bladder. There is a right-sided inguinal hernia containing adipose tissue. Loss of the normal lumbar lordosis. Mild degree of disc space narrowing at the L4-L5 level. CT/Abdomen/Pelvis W IV Cont ONLY IMPRESSION: Status post cholecystectomy. A biliary stent is seen within the common bile duct. The distal tip of the stent is seen within the third portion of the duodenum. There is dilatation of the proximal portion of the common bile duct measuring 10.7 mm. Electronically Signed: Ye Galicia MD at 11:06 EDT ,
--- NOTE | 2024-03-20 10:05 | ED.VIS.GI ---
HPI HPI - GI History of Present Illness Chief Complaint: Abd Pain Informant: patient Narrative Narrative: Patient having intermittent episodes of upper abdominal epigastric pain over the last couple weeks, last episode was this morning, currently pain-free, seems to be random. This morning noticed that his urine looked orange and people telling him that he looks jaundiced in his eyes. He currently feels okay. No associated nausea, vomiting, changes in stool formation or coloration, no blood or melena. He has a little bit of low back discomfort this morning that is new but it is mild and diffuse. Prior cholecystectomy, he states it was related to stones and was complicated, requiring 3 different procedures. He states that was done here. [facility] Medical History Esophageal obstruction due to food impaction Ex-smoker History of biliary stent insertion reattached fingers of the R hand Home Medications NK 03/20/24 [History Last Taken Unknown] Allergy/AdvReac Type Severity Reaction Status Date / Time No Known Allergies Allergy Verified 03/05/22 21:33 Family History Other Bleeding disorder Diabetes Hypertension Surgical History History of appendectomy S/P laparoscopic cholecystectomy Social History Smoking Status: Former smoker alcohol intake: current alcohol intake frequency: a few times a month [facility] ED Constitutional Constitutional ED: Denies chills or fever(s) Eyes Eyes: Reports change in eye color; Denies change in vision or diplopia ENT ENT ED: Denies rhinorrhea or sore throat Cardiovascular Cardiovascular: Denies chest pain or palpitations Respiratory/Chest Respiratory/Chest: Denies cough or dyspnea Gastrointestinal Gastrointestinal: Reports abdominal pain; Denies diarrhea, nausea or vomiting Genitourinary Genitourinary ED: Reports as per HPI; Denies difficulty urinating, dysuria, flank pain or genital pain Musculoskeletal Musculoskeletal: Reports back pain; Denies neck pain Integumentary Denies abscess or rash Neurologic Neurologic: Denies headache(s), paresthesias or weakness Psychiatric Psychiatric: Denies anxiety or suicidal thoughts EXAM Physical Exam Const Vital Signs: 03/20/24 09:54 05/10/24 11:54 Temperature 96.2 F L Temperature Source Temporal Pulse Rate 93 82 Respiratory Rate 17 18 Blood Pressure 133/91 H Blood Pressure Mean 105 Pulse Ox 98 96 Oxygen Delivery Method Room Air Room Air Positive well nourished and well developed Constitutional Narrative: well-appearing General Appearance ED: well developed and NAD HEENT Reports moist mucous membranes normocephalic and atraumatic Eyes PERRL and EOMs intact bilaterally General Eye ED: Yes scleral icterus Neck full ROM and supple Resp normal respiratory effort and clear to auscultation bilaterally Cardio regular rate, regular rhythm and no murmurs Rate: Negative for tachycardic GI non-tender and non-distended Auscultation: normoactive bowel sounds Palpation: soft Back/Spine no CVA tenderness General Back: other FROM Extremity normal to inspection General Extremety ED: Negative for edema, pulses abnormal or tenderness General Extremity: Negative for edema or pulses abnormal Neuro oriented x3, CN's II-XII intact bilaterally and no sensory deficits noted Sensorium / Orientation: awake and alert Motor Exam: strength 5/5 throughout Psych mental status grossly normal and thought process normal Skin no rashes or lesions noted and no wounds MDM MDM MDM Narrative Medical decision making narrative: Concern is for a recurrent biliary obstruction. Therefore labs and a CT ordered. His labs confirm hyperbilirubinemia as well as elevated liver enzymes higher than before. With regards to the CT I reviewed the images and the result which I agree with, it shows proximal biliary dilatation above the stent which is in place. Discussed with Dr. Shafer who agrees patient can stay here for an ERCP, and requests antibiotics be given. Will start a second-generation cephalosporin, patient is n.p.o., discussed with hospitalist. At this time the patient is in no pain. History & Record Review Additional record(s) reviewed:: Prior inpatient record (Cholecystitis in 02/2022 with choledocholithiasis, had persistent cystic duct stone status post ERCP and stent which was subsequently removed) Lab Data Attestation: I reviewed the patient's lab results. Labs: Laboratory Results - last 24 hr 03/20/24 10:15 WBC 7.6 RBC 5.57 Hgb 16.4 Hct 49.1 MCV 88.2 MCH 29.4 MCHC 33.4 RDW Std Deviation 41.3 RDW Coeff of Chan 12.8 Plt Count 194 MPV 9.9 Immature Gran % (Auto) 0.300 Neut % (Auto) 81.9 H Lymph % (Auto) 7.1 L Norman % (Auto) 9.7 Eos % (Auto) 0.7 Baso % (Auto) 0.3 Absolute Neuts (auto) 6.2 Absolute Lymphs (auto) 0.54 L Nucleated RBC % 0 Sodium 135 L Potassium 4.0 Chloride 101 Carbon Dioxide 29.0 Anion Gap 5 BUN 13 Creatinine 1.07 Estim Creat Clear Calc 115.87 Est GFR (MDRD) Af Amer 97 Est GFR (MDRD) Non-Af 80 BUN/Creatinine Ratio 12.1 Glucose 115 H Calcium 9.3 Total Bilirubin 9.70 H Direct Bilirubin 4.00 H AST 188 H ALT 508 H Alkaline Phosphatase 161 H Total Protein 7.7 Albumin 3.7 Globulin 4.0 Lipase 31 Radiography Diagnostic Testing: Clinical Impression(s) from Imaging Studies Abdomen/Pelvis CT 03/20/24 10:04 IMPRESSION: Status post cholecystectomy. A biliary stent is seen within the common bile duct. The distal tip of the stent is seen within the third portion of the duodenum. There is dilatation of the proximal portion of the common bile duct measuring 10.7 mm. Electronically Signed: Ye Galicia MD at 11:06 EDT , Management Discussion w/another healthcare provider: Hospitalist and Tobacco Stripper (GI friend) Discharge Plan Dx/Rx/DC Orders Clinical Impression: Biliary obstruction Disposition Disposition: Acute Care Hospital [facility]
[2024-03-20 10:27] LABS: Absolute Lymphocyte Count 0.54 X10^3/uL (0.83-4.51); Absolute Neutrophil Count 6.2 X10^3/uL (2.0-7.7); Basophil# 0.02 X10^3/uL; Basophil% 0.3 % (0-1); Eosinophil# 0.05 X10^3/uL; Eosinophils% 0.7 % (0-5); Hematocrit 49.1 % (40-54); Hemoglobin 16.4 g/dL (13.0-16.5); Lymphocyte # 0.54 X10^3/ul (0.83-4.51); Lymphocyte % 7.1 % (19-41); Mean Corp Hgb Conc 33.4 g/dL (32-36); Mean Corpuscular Hgb 29.4 pg (27.0-32.0); Mean Corpuscular Volume 88.2 fL (80-94); Mean Platelet Vol. 9.9 fl (6.2-12.0); Monocyte# 0.74 X10^3/uL; Monocyte% 9.7 % (0-10); NRBC Flagged by Analyzer 0 % (0-5); Neutrophil # 6.22 X10^3/uL (2.7-7.7); Neutrophil % 81.9 % (47-70); POSITIVE DIFFERENTIAL YES; Platelet Count 194 K/mm3 (150-450); RBC Distribution Width CV 12.8 % (11.6-14.6); RBC Distribution Width SD 41.3 fl (35.1-43.9); Red Blood Count 5.57 M/mm3 (4.6-6.2); White Blood Count 7.6 K/mm3 (4.4-11.0)
[2024-03-20 10:43] LABS: AST(SGOT) 188 U/L (15-37); Alanine Aminotransfer ALT/SGPT 508 U/L (16-61); Albumin, Serum 3.7 g/dL (3.2-5.0); Alkaline Phosphatase 161 U/L (45-117); Anion Gap 5 (5-15); BUN 13 mg/dL (7-18); BUN/Creat Ratio 12.1 RATIO (10-20); Calcium,Total 9.3 mg/dL (8.5-10.1); Chloride 101 mmol/L (98-107); Creatinine, Serum 1.07 mg/dL (0.70-1.30); EST Glomerular Filtration Rate 80 mL/min (>60); Est Glom Filt Rate - Afr Amer 97 mL/min (>60); Estimated Creatinine Clearance 115.87 ml/min; Glucose 115 mg/dL (74-106); Lipase 31 U/L (13-75); Protein, Total 7.7 g/dL (6.4-8.2); Sodium Level 135 mmol/L (136-145)
[2024-03-20 11:54] VITALS: PULSE 82; RESP 18; O2SAT 96
[2024-03-20] MEDS: CEFUROXIME IV (12:56)
[2024-03-20] MEDS: NORMAL SALINE 0.9% IV (12:56)
[2024-03-20 12:57] VITALS: BP 136/65; PULSE 74; RESP 16; TEMP 36.7; O2SAT 99
[2024-03-20 13:06] VITALS: BMI 30.2
[2024-03-20 13:21] VITALS: BP 125/85; PULSE 88; RESP 18; TEMP 36.3; O2SAT 98
[2024-03-20] MEDS: 0.9% Normal Saline (1000mL) 1,000 ML 100 ML IV ×2 (13:39→22:17)
[2024-03-20] MEDS: Piperacil/Tazobactam 3.375 GM in 0.9% Normal Saline (50mL MB+) 50 ML IV ×2 (14:44→22:16)
--- NOTE | 2024-03-20 14:57 | PCM.HP.STD ---
HPI - General General Date of Admission: 03/20/24 HPI Narrative ODALYS CHANCE, is a 43 M who presents to the hospital with abdominal pain since about Saturday. The very first episode of some discomfort was about 3 weeks ago. He does not think that food makes it any better or worse but he presented to the hospital because he noticed that his eyes were yellow and that his urine was darker. In the ER he had a CT of the abdomen and pelvis which shows a dislodged common bile duct stent. This is likely from his cholecystectomy and ERCP in 2021, it appears that this may have gotten clogged as he now has a common bile duct dilatation. I have given a dose of antibiotics and started IV fluids in the ER. Total bilirubin is elevated to over 9 with a bump in his LFTs. He is afebrile without a leukocytosis. [facility] Medical History Esophageal obstruction due to food impaction Ex-smoker History of biliary stent insertion reattached fingers of the R hand Home Medications NK 03/20/24 [History Last Taken Unknown] Allergy/AdvReac Type Severity Reaction Status Date / Time No Known Allergies Allergy Verified 03/05/22 21:33 Family History Other Bleeding disorder Diabetes Hypertension Surgical History History of appendectomy S/P laparoscopic cholecystectomy Social History Smoking Status: Former smoker alcohol intake: current alcohol intake frequency: a few times a month ROS Constitutional Constitutional: Denies chills, fatigue, fever(s) or malaise Eyes Eyes: Denies blurry vision ENT HEENT: Denies headache(s) or nasal discharge Cardiovascular Cardiovascular: Denies chest pain, dyspnea on exertion or syncope Respiratory/Chest Respiratory/Chest: Denies cough, shortness of breath at rest or shortness of breath with exertion Gastrointestinal Gastrointestinal: Reports abdominal pain; Denies constipation, diarrhea, nausea or vomiting Genitourinary Genitourinary: Denies dysuria Integumentary Integumentary: Reports jaundice Neurologic Neurologic: Denies focal weakness, numbness or tremor(s) Psychiatric Psychiatric: Denies anxiety or depression Vital Signs Vital Signs Vital Signs: 03/20/24 09:54 03/20/24 11:54 03/20/24 12:57 Temperature 96.2 F L 98.1 F Temperature Source Temporal Pulse Rate 93 82 74 Respiratory Rate 17 18 16 Respiratory Effort Blood Pressure 133/91 H 136/65 H Blood Pressure Mean 105 88 Blood Pressure Source Blood Pressure Position Blood Pressure Location Pulse Ox 98 96 99 Oxygen Delivery Method Room Air Room Air 03/20/24 13:21 03/20/24 13:25 Temperature 97.4 F L Temperature Source Temporal Pulse Rate 88 Respiratory Rate 18 Respiratory Effort Normal Blood Pressure 125/85 H Blood Pressure Mean 98 Blood Pressure Source Monitor Blood Pressure Position Supine Blood Pressure Location Left Arm Pulse Ox 98 Oxygen Delivery Method Room Air Room Air Weight Weight: 235 lb 6.4 oz Body Mass Index (BMI) 30.2 Physical Exam Narrative General: Alert, Oriented x3, Cooperative, No apparent distress HEENT: Atraumatic, PERRLA, EOMI, Normocephalic, scleral icterus Oral: Moist Mucosa Neck: Supple, No JVD Lungs: Clear to auscultation, Normal air movement, No rhonchi, No wheeze, No rales Cardiovascular: Regular rate, Regular Rhythm, Normal S1, Normal S2, No murmurs Abdomen: Soft, minimal right upper quadrant abdominal pain to palpation, Non-Distended, No Hepato-splenomegaly Extremities: No edema, Capillary Refill Less than 3 Seconds Skin: No rashes, No breakdown, jaundice Musculoskeletal: No Tenderness to Palpation of Joints or Extremities Neurological: No focal neurological deficits, Motor Exam 5/5 strength throughout, Sensory exam intact to light touch and pain Psych/Mental Status: Normal Affect, Appropriate Results Lab / Micro Data 03/20/24 10:15 03/20/24 10:15 Labs: Laboratory Results - last 24 hr 03/20/24 10:15: WBC 7.6, RBC 5.57, Hgb 16.4, Hct 49.1, MCV 88.2, MCH 29.4, MCHC 33.4, RDW Std Deviation 41.3, RDW Coeff of Chan 12.8, Plt Count 194, MPV 9.9, Immature Gran % (Auto) 0.300, Neut % (Auto) 81.9 H, Lymph % (Auto) 7.1 L, Lares % (Auto) 9.7, Eos % (Auto) 0.7, Baso % (Auto) 0.3, Absolute Neuts (auto) 6.2, Absolute Lymphs (auto) 0.54 L, Nucleated RBC % 0, Sodium 135 L, Potassium 4.0, Chloride 101, Carbon Dioxide 29.0, Anion Gap 5, BUN 13, Creatinine 1.07, Estim Creat Clear Calc 115.87, Est GFR (MDRD) Af Amer 97, Est GFR (MDRD) Non-Af 80, BUN/Creatinine Ratio 12.1, Glucose 115 H, Calcium 9.3, Total Bilirubin 9.70 H, Direct Bilirubin 4.00 H, AST 188 H, ALT 508 H, Alkaline Phosphatase 161 H, Total Protein 7.7, Albumin 3.7, Globulin 4.0, Lipase 31 Imaging Radiology Impression Abdomen/Pelvis CT 03/20/24 10:04 IMPRESSION: Status post cholecystectomy. A biliary stent is seen within the common bile duct. The distal tip of the stent is seen within the third portion of the duodenum. There is dilatation of the proximal portion of the common bile duct measuring 10.7 mm. Electronically Signed: Ye Galicia MD at 11:06 EDT , Assessment & Plan Assessment/Plan (1) Biliary obstruction: PLAN: Plan 1. Biliary obstruction secondary to common bile duct stent ?Stent appears to be dislodged into the third portion of the duodenum ? Will consult gastroenterology for retrieval ? Continue with prophylactic antibiotic coverage ? Will make him n.p.o. ? Continue with IV fluids DVT: Ambulation 75 minutes was spent on direct patient care, including documentation as well as chart review and collaboration with colleagues Charges/Coding Visit Charges Inpatient E&M: 66464 Init Hosp L3
[2024-03-20 20:02] VITALS: BP 125/80; PULSE 87; RESP 18; TEMP 36.9; O2SAT 97
--- NOTE | 2024-03-20 20:54 | EX.PCM.CON.G ---
HPI Consult Data Date of Consult: 03/20/24 HPI Narrative Reason for Consultation: Obstructive jaundice HPI Narrative: ODALYS CHANCE, is a 43 M who presents with intermittent episodes of upper abdominal epigastric pain over the last couple weeks, last episode was this morning, currently pain-free, seems to be random. This morning noticed that his urine looked orange and people telling him that he looks jaundiced in his eyes. He currently feels okay. No associated nausea, vomiting, changes in stool formation or coloration, no blood or melena. He has a little bit of low back discomfort this morning that is new but it is mild and diffuse. He has a history of prior cholecystectomy, and obstructive jaundice status post ERCP with stent placement. He was supposed to come back and have his stent removed and also to have his bile duct evaluated fully. Laboratory analysis: 03/20/24 10:15: WBC 7.6, RBC 5.57, Hgb 16.4, Hct 49.1, MCV 88.2, MCH 29.4, MCHC 33.4, RDW Std Deviation 41.3, RDW Coeff of Chan 12.8, Plt Count 194, MPV 9.9, Immature Gran % (Auto) 0.300, Neut % (Auto) 81.9 H, Lymph % (Auto) 7.1 L, [place] % (Auto) 9.7, Eos % (Auto) 0.7, Baso % (Auto) 0.3, Absolute Neuts (auto) 6.2, Absolute Lymphs (auto) 0.54 L, Nucleated RBC % 0, Sodium 135 L, Potassium 4.0, Chloride 101, Carbon Dioxide 29.0, Anion Gap 5, BUN 13, Creatinine 1.07, Estim Creat Clear Calc 115.87, Est GFR (MDRD) Af Amer 97, Est GFR (MDRD) Non-Af 80, BUN/Creatinine Ratio 12.1, Glucose 115 H, Calcium 9.3, Total Bilirubin 9.70 H, Direct Bilirubin 4.00 H, AST 188 H, ALT 508 H, Alkaline Phosphatase 161 H, Total Protein 7.7, Albumin 3.7, Globulin 4.0, Lipase 31 PFSH Medical History Esophageal obstruction due to food impaction Ex-smoker History of biliary stent insertion reattached fingers of the R hand Home Medications NK 03/20/24 [History Last Taken Unknown] Allergy/AdvReac Type Severity Reaction Status Date / Time No Known Allergies Allergy Verified 03/05/22 21:33 Family History Other Bleeding disorder Diabetes Hypertension Surgical History History of appendectomy S/P laparoscopic cholecystectomy Social History Smoking Status: Former smoker alcohol intake: current alcohol intake frequency: a few times a month ROS Constitutional Constitutional: Denies chills, fatigue, fever(s) or malaise Eyes Eyes: Denies blurry vision ENT HEENT: Denies headache(s) or nasal discharge Cardiovascular Cardiovascular: Denies chest pain, dyspnea on exertion or syncope Respiratory/Chest Respiratory/Chest: Denies cough, shortness of breath at rest or shortness of breath with exertion Gastrointestinal Gastrointestinal: Reports abdominal pain; Denies constipation, diarrhea, nausea or vomiting Genitourinary Genitourinary: Denies dysuria Integumentary Integumentary: Reports jaundice Neurologic Neurologic: Denies focal weakness, numbness or tremor(s) Psychiatric Psychiatric: Denies anxiety or depression Physical Exam Narrative General: Alert, Oriented x3, Cooperative, No apparent distress HEENT: Atraumatic, PERRLA, EOMI, Normocephalic, scleral icterus Oral: Moist Mucosa Neck: Supple, No JVD Lungs: Clear to auscultation, Normal air movement, No rhonchi, No wheeze, No rales Cardiovascular: Regular rate, Regular Rhythm, Normal S1, Normal S2, No murmurs Abdomen: Soft, minimal right upper quadrant abdominal pain to palpation, Non-Distended, No Hepato-splenomegaly Extremities: No edema, Capillary Refill Less than 3 Seconds Skin: No rashes, No breakdown, jaundice Musculoskeletal: No Tenderness to Palpation of Joints or Extremities Neurological: No focal neurological deficits, Motor Exam 5/5 strength throughout, Sensory exam intact to light touch and pain Psych/Mental Status: Normal Affect, Appropriate Lab / Micro Data 03/20/24 10:15 03/20/24 10:15 Labs: Laboratory Results - last 24 hr 03/20/24 10:15: WBC 7.6, RBC 5.57, Hgb 16.4, Hct 49.1, MCV 88.2, MCH 29.4, MCHC 33.4, RDW Std Deviation 41.3, RDW Coeff of Chan 12.8, Plt Count 194, MPV 9.9, Immature Gran % (Auto) 0.300, Neut % (Auto) 81.9 H, Lymph % (Auto) 7.1 L, [place] % (Auto) 9.7, Eos % (Auto) 0.7, Baso % (Auto) 0.3, Absolute Neuts (auto) 6.2, Absolute Lymphs (auto) 0.54 L, Nucleated RBC % 0, Sodium 135 L, Potassium 4.0, Chloride 101, Carbon Dioxide 29.0, Anion Gap 5, BUN 13, Creatinine 1.07, Estim Creat Clear Calc 115.87, Est GFR (MDRD) Af Amer 97, Est GFR (MDRD) Non-Af 80, BUN/Creatinine Ratio 12.1, Glucose 115 H, Calcium 9.3, Total Bilirubin 9.70 H, Direct Bilirubin 4.00 H, AST 188 H, ALT 508 H, Alkaline Phosphatase 161 H, Total Protein 7.7, Albumin 3.7, Globulin 4.0, Lipase 31 Imaging Radiology Impression Abdomen/Pelvis CT 03/20/24 10:04 IMPRESSION: Status post cholecystectomy. A biliary stent is seen within the common bile duct. The distal tip of the stent is seen within the third portion of the duodenum. There is dilatation of the proximal portion of the common bile duct measuring 10.7 mm. Electronically Signed: Ye Galicia MD at 11:06 EDT , Assessment & Plan Assessment/Plan (1) Choledocholithiasis with cholecystitis: PLAN: Obstructive jaundice secondary to choledocholithiasis. He should undergo an ERCP with stent removal and possible replacement. He was explained alternatives, risk, benefits including not withstanding bleeding, infection, sepsis, perforation, need for emergency or . Have an ASA of 3. Recommend to keep n.p.o. and continue antibiotics at this time. Charges/Coding Visit Charges Inpatient E&M: 17584 Init Hosp L3
[2024-03-21] VITALS (13 sets, daily range): BP systolic 114–142; BP diastolic 76–95; PULSE 69–96; RESP 16–18; TEMP 36.2–37; O2SAT 98–100; BMI 30.2
[2024-03-21] MEDS: Piperacil/Tazobactam 3.375 GM in 0.9% Normal Saline (50mL MB+) 50 ML IV ×3 (05:21→22:04)
[2024-03-21] MEDS: 0.9% Normal Saline (1000mL) 1,000 ML 100 ML IV ×2 (06:10→15:56)
[2024-03-21 07:03] LABS: Basophil# 0.03 X10^3/uL; Basophil% 0.5 % (0-1); Eosinophil# 0.25 X10^3/uL; Eosinophils% 4.2 % (0-5); Hematocrit 44.9 % (40-54); Lymphocyte % 13.5 % (19-41); Mean Corp Hgb Conc 33.4 g/dL (32-36); Mean Corpuscular Hgb 29.5 pg (27.0-32.0); Mean Corpuscular Volume 88.2 fL (80-94); Mean Platelet Vol. 10.6 fl (6.2-12.0); Monocyte# 0.79 X10^3/uL; Monocyte% 13.3 % (0-10); NRBC Flagged by Analyzer 0 % (0-5); Neutrophil # 4.02 X10^3/uL (2.7-7.7); Platelet Count 191 K/mm3 (150-450); RBC Distribution Width CV 12.8 % (11.6-14.6); RBC Distribution Width SD 41.5 fl (35.1-43.9); Red Blood Count 5.09 M/mm3 (4.6-6.2); White Blood Count 5.9 K/mm3 (4.4-11.0)
[2024-03-21 07:25] LABS: Anion Gap 2 (5-15); BUN 11 mg/dL (7-18); Calcium,Total 8.6 mg/dL (8.5-10.1); Chloride 106 mmol/L (98-107); Creatinine, Serum 0.92 mg/dL (0.70-1.30); EST Glomerular Filtration Rate 95 mL/min (>60); Est Glom Filt Rate - Afr Amer 116 mL/min (>60); Estimated Creatinine Clearance 134.77 ml/min; Glucose 97 mg/dL (74-106); Potassium 3.9 mmol/L (3.5-5.1); Sodium Level 136 mmol/L (136-145)
--- NOTE | 2024-03-21 08:00 | RAD_ITS ---
ERCP next INDICATION: Abdominal pain. Fluoroscopy time: 1:24 Images obtained: 9 TECHNIQUE: Fluoroscopy the abdomen was utilized operating room during an ERCP and the 9 images are submitted for interpretation. FINDINGS: Status post cholecystectomy. Balloon extraction and sphincterotomy was performed. RAD/ERCP Biliary/Pancreas IMPRESSION: Fluoroscopy during ERCP with balloon extraction and sternotomy. Electronically Signed: Chiki Israel MD at 16:25 EDT ,
--- NOTE | 2024-03-21 09:50 | PN.HOSP_ITS ---
Subjective Subjective Doing well, No issues overnight Objective Data Objective Data Vital Signs: Vital Signs Temp Pulse Resp BP Pulse Ox O2 Del Method 98.4 F 83 18 127/76 H 99 Room Air 03/21/24 05:24 03/21/24 05:24 03/21/24 05:24 03/21/24 05:24 03/21/24 05:24 03/21/24 05:24 Oxygen Delivery Method Room Air Weight: 235 lb 6.4 oz Body Mass Index (BMI) 30.2 Intake & Output: Intake and Output for Last 24 Hours 03/20/24 03/21/24 03/22/24 03:59 03:59 03:59 Intake Total 1380.03 / 1380.03 788.33 / 788.33 Balance 1380.03 / 1380.03 788.33 / 788.33 Lab / Micro Data 03/21/24 05:21 03/21/24 05:21 Labs: Laboratory Results - last 24 hr 03/20/24 10:15: WBC 7.6, RBC 5.57, Hgb 16.4, Hct 49.1, MCV 88.2, MCH 29.4, MCHC 33.4, RDW Std Deviation 41.3, RDW Coeff of Chan 12.8, Plt Count 194, MPV 9.9, Immature Gran % (Auto) 0.300, Neut % (Auto) 81.9 H, Lymph % (Auto) 7.1 L, [place] % (Auto) 9.7, Eos % (Auto) 0.7, Baso % (Auto) 0.3, Absolute Neuts (auto) 6.2, Absolute Lymphs (auto) 0.54 L, Nucleated RBC % 0, Sodium 135 L, Potassium 4.0, Chloride 101, Carbon Dioxide 29.0, Anion Gap 5, BUN 13, Creatinine 1.07, Estim Creat Clear Calc 115.87, Est GFR (MDRD) Af Amer 97, Est GFR (MDRD) Non-Af 80, BUN/Creatinine Ratio 12.1, Glucose 115 H, Calcium 9.3, Total Bilirubin 9.70 H, Direct Bilirubin 4.00 H, AST 188 H, ALT 508 H, Alkaline Phosphatase 161 H, Total Protein 7.7, Albumin 3.7, Globulin 4.0, Lipase 31 03/21/24 05:21: WBC 5.9, RBC 5.09, Hgb 15.0, Hct 44.9, MCV 88.2, MCH 29.5, MCHC 33.4, RDW Std Deviation 41.5, RDW Coeff of Chan 12.8, Plt Count 191, MPV 10.6, Immature Gran % (Auto) 0.500, Neut % (Auto) 68.0, Lymph % (Auto) 13.5 L, [place] % (Auto) 13.3 H, Eos % (Auto) 4.2, Baso % (Auto) 0.5, Absolute Neuts (auto) 4.0, Absolute Lymphs (auto) 0.80 L, Nucleated RBC % 0, Sodium 136, Potassium 3.9, Chloride 106, Carbon Dioxide 28.0, Anion Gap 2 L, BUN 11, Creatinine 0.92, Estim Creat Clear Calc 134.77, Est GFR (MDRD) Af Amer 116, Est GFR (MDRD) Non-Af 95, BUN/Creatinine Ratio 12.0, Glucose 97, Calcium 8.6 Radiography Diagnostic Testing: Radiology Impression Abdomen/Pelvis CT 03/20/24 10:04 IMPRESSION: Status post cholecystectomy. A biliary stent is seen within the common bile duct. The distal tip of the stent is seen within the third portion of the duodenum. There is dilatation of the proximal portion of the common bile duct measuring 10.7 mm. Electronically Signed: Ye Galicia MD at 11:06 EDT , Physical Exam Narrative General: Alert, Oriented x3, Cooperative, No apparent distress HEENT: Atraumatic, PERRLA, EOMI, Normocephalic, scleral icterus Oral: Moist Mucosa Neck: Supple, No JVD Lungs: Clear to auscultation, Normal air movement, No rhonchi, No wheeze, No rales Cardiovascular: Regular rate, Regular Rhythm, Normal S1, Normal S2, No murmurs Abdomen: Soft, minimal right upper quadrant abdominal pain to palpation, Non- Distended, No Hepato-splenomegaly Extremities: No edema, Capillary Refill Less than 3 Seconds Skin: No rashes, No breakdown, jaundice Musculoskeletal: No Tenderness to Palpation of Joints or Extremities Neurological: No focal neurological deficits, Motor Exam 5/5 strength throughout, Sensory exam intact to light touch and pain Psych/Mental Status: Normal Affect, Appropriate Assessment & Plan Assessment/Plan (1) Biliary obstruction: PLAN: Plan 1. Biliary obstruction secondary to common bile duct stent ?Stent appears to be dislodged into the third portion of the duodenum ? Will consult gastroenterology for retrieval, plan for ERCP today ? Continue with prophylactic antibiotic coverage ? Will make him n.p.o. ? Continue with IV fluids DVT: Ambulation Charges/Coding Visit Charges Inpatient E&M: 25541 Subs Hosp L2
--- NOTE | 2024-03-21 11:40 | CASEMGMT ---
RN CM Face to Face with patient for initial transition planning/care coordination assessment. RN CM introduced self and role at [facility]. Patient lying in bed, alert and oriented. Patient willing to participate in assessment and is able to answer all questions appropriately. Care providers, pharmacy, and demographics verified. PCP: Davion VALDEZ Specialists: none Preferred Pharmacy: [facility] Insurance: [place] Prescription Benefit: yes Living Will/HPOA: none LNOK: Living Arrangements: Patient lives with in a single story home with 2 steps to enter the home. Patient is independent in the home. Transportation: self, DME/HHC: Patient denies DME in the home. No previous HHC or SNF. Patient wishes to discharge home, denies need for home health at this time. Patient states he has no further needs or concerns at this time. CM to follow for discharge planning needs that may arise. Disposition Plan: Patient to discharge home with family support and follow-up plans in place. Elisabet CORBETT, RN, CM
[2024-03-21] MEDS: Lactated Ringers 1,000 ML 15 ML IV (14:00)
--- NOTE | 2024-03-21 14:42 | OP.ERCP_ITS ---
Patient Name: Enoch Randolph Procedure Date: 03/21/2024 1:27 PM Date of : 1980 Age: 43 Procedure: ERCP Indications: Bile duct stone(s), For therapy of bile duct stone(s), Stent removal Providers: Chin Shafer DO Medicines: Monitored Anesthesia Care Patient Profile: This is a 43 year old male. Refer to note in patient chart for documentation of history and physical. Patient has symptoms of chronic jaundice. Complications: No immediate complications. Procedure: Pre-Anesthesia Assessment: - Prior to the procedure, a History and Physical was performed, and patient medications and allergies were reviewed. The risks and benefits of the procedure and the sedation options and risks were discussed with the patient. All questions were answered and informed consent was obtained. Patient identification and proposed procedure were verified by the physician. Mental Status Examination: normal. Prophylactic Antibiotics: The patient does not require prophylactic antibiotics. Prior Anticoagulants: The patient has taken no anticoagulant or antiplatelet agents. ASA Grade Assessment: III - A patient with severe systemic disease. After reviewing the risks and benefits, the patient was deemed in satisfactory condition to undergo the procedure. The anesthesia plan was to use monitored anesthesia care (MAC). Immediately prior to administration of medications, the patient was re-assessed for adequacy to receive sedatives. The heart rate, respiratory rate, oxygen saturations, blood pressure, adequacy of pulmonary ventilation, and response to care were monitored throughout the procedure. The physical status of the patient was re-assessed after the procedure. After obtaining informed consent, the scope was passed under direct vision. Throughout the procedure, the patient's blood pressure, pulse, and oxygen saturations were monitored continuously. The Duodenoscope was introduced through the mouth, and advanced to the duodenum and used to inject contrast into the bile duct. The ERCP was accomplished without difficulty. The patient tolerated the procedure well. Scope In: 2:02:24 PM Scope Out: 2:14:26 PM Total Procedure Duration Time 0 hours 12 minutes 2 seconds Findings: The senior air director film was normal. The esophagus was successfully intubated under direct vision. The scope was advanced to a normal major papilla in the descending duodenum without detailed examination of the pharynx, larynx and associated structures, and upper GI tract. The upper GI tract was grossly normal. The bile duct was deeply cannulated with the short-nosed traction sphincterotome. Contrast was injected. I personally interpreted the bile duct images. There was brisk flow of contrast through the ducts. Image quality was excellent. Contrast extended to the entire biliary tree. Opacification of the entire biliary tree except for the gallbladder was successful. The maximum diameter of the ducts was 10 mm. The main bile duct contained multiple stones, the largest of which was 6 mm in diameter. The entire biliary tree except for the gallbladder was diffusely dilated, with a stone causing an obstruction. The largest diameter was 10 mm. A cholecystectomy had been performed. A straight Roadrunner wire was passed into the biliary tree. A 5 mm biliary sphincterotomy was made with a traction (standard) sphincterotome using ERBE electrocautery. There was no post-sphincterotomy bleeding. The biliary tree was swept with a 12 mm balloon starting at the bifurcation. Sludge was swept from the duct. All stones were removed. One stent was removed from the biliary tree using a snare. Impression: - The biliary system were dilated, with a stone causing an obstruction. - The patient has had a cholecystectomy. - Choledocholithiasis was found. Complete removal was accomplished by biliary sphincterotomy and balloon extraction. - A biliary sphincterotomy was performed. - The biliary tree was swept. - One stent was removed from the biliary tree. Procedure Code(s): --- Professional --- 33543, Endoscopic retrograde cholangiopancreatography (ERCP); with removal of foreign body(s) or stent(s) from biliary/pancreatic duct(s) 22254, Endoscopic retrograde cholangiopancreatography (ERCP); with removal of calculi/debris from biliary/pancreatic duct(s) 09800, Endoscopic retrograde cholangiopancreatography (ERCP); with sphincterotomy/papillotomy 77757, 26, Endoscopic catheterization of the biliary ductal system, radiological supervision and interpretation CPT copyright 2021 [employer]. All rights reserved. The codes documented in this report are preliminary and upon infant lead teacher review may be revised to meet current compliance requirements. Chin Shafer DO 03/21/2024 2:42:14 PM This report has been signed electronically. Number of Addenda: 0 Note Initiated On: 03/21/2024 1:27 PM
--- NOTE | 2024-03-21 14:43 | OP.CCLET_ITS ---
03/21/2024 Jessica Ricardo NP [facility] [address] [place] [id number] Re : ERCP procedure for Enoch Randolph Dear Ms. Ricardo This procedure was performed on Thursday, March 21, 2024. My impressions and recommendations are as follows: Impressions : - The biliary system were dilated, with a stone causing an obstruction. - The patient has had a cholecystectomy. - Choledocholithiasis was found. Complete removal was accomplished by biliary sphincterotomy and balloon extraction. - A biliary sphincterotomy was performed. - The biliary tree was swept. - One stent was removed from the biliary tree. Recommendations : My findings are described in the full procedure note, which is enclosed. If I can be of further assistance, please feel free to contact me at . Sincerely, Chin Shafer, 03/21/2024 2:42:14 PM This report has been signed electronically.
[2024-03-22] MEDS: 0.9% Normal Saline (1000mL) 1,000 ML 100 ML IV (02:14)
[2024-03-22] MEDS: Piperacil/Tazobactam 3.375 GM in 0.9% Normal Saline (50mL MB+) 50 ML IV (05:01)
[2024-03-22 05:03] VITALS: BP 112/58; PULSE 77; RESP 16; TEMP 36.3; O2SAT 100
[2024-03-22 05:50] LABS: Absolute Neutrophil Count 2.7 X10^3/uL (2.0-7.7); Basophil# 0.04 X10^3/uL; Basophil% 0.7 % (0-1); Eosinophil# 0.28 X10^3/uL; Hematocrit 42.1 % (40-54); Hemoglobin 13.9 g/dL (13.0-16.5); Lymphocyte % 26.8 % (19-41); Mean Corpuscular Hgb 29.3 pg (27.0-32.0); Mean Corpuscular Volume 88.8 fL (80-94); Mean Platelet Vol. 10.3 fl (6.2-12.0); Monocyte% 17.9 % (0-10); NRBC Flagged by Analyzer 0 % (0-5); Neutrophil # 2.74 X10^3/uL (2.7-7.7); Neutrophil % 49.1 % (47-70); Platelet Count 189 K/mm3 (150-450); RBC Distribution Width CV 12.9 % (11.6-14.6); Red Blood Count 4.74 M/mm3 (4.6-6.2); White Blood Count 5.6 K/mm3 (4.4-11.0)
[2024-03-22 06:16] LABS: ALB/GLOB Ratio 0.8 RATIO (0.9-2.4); AST(SGOT) 31 U/L (15-37); Alanine Aminotransfer ALT/SGPT 204 U/L (16-61); Albumin, Serum 2.8 g/dL (3.2-5.0); Alkaline Phosphatase 134 U/L (45-117); Anion Gap 4 (5-15); BUN 7 mg/dL (7-18); BUN/Creat Ratio 8.7 RATIO (10-20); Calcium,Total 8.7 mg/dL (8.5-10.1); Chloride 109 mmol/L (98-107); Creatinine, Serum 0.81 mg/dL (0.70-1.30); EST Glomerular Filtration Rate 110 mL/min (>60); Est Glom Filt Rate - Afr Amer 133 mL/min (>60); Estimated Creatinine Clearance 153.07 ml/min; Globulin 3.4 g/dL (2.2-4.2); Glucose 88 mg/dL (74-106); Potassium 4.1 mmol/L (3.5-5.1); Protein, Total 6.2 g/dL (6.4-8.2); Sodium Level 140 mmol/L (136-145)
--- NOTE | 2024-03-22 07:27 | PCM.DC ---
Discharge Instructions Diet Discharge Diet: No restrictions Activity Discharge Activity: Return to Normal Activity Dressing / Incision Call your doctor if you observe: Fever of 101 or Higher, Shortness of breath, Dizziness, Fainting spells, Swelling in the ankles, Chest pain and Increased palpitations (irregular heartbeat) Follow Up Care Test Results: Test results from this visit will be discussed in further detail at your follow-up appointment, if applicable. Discharge Plan Admission Admit Date/Time: 03/20/24 12:46 Attending Provider: Thom Abraham Primary Care Provider: Jessica Ricardo NP Discharge Orders/Prescriptions Prescriptions: No Action NK Referrals / Follow Up: Jessica Ricardo NP, PARKING REGULATION ENFORCEMENT OFFICER-C [Primary Care Provider] - Within 1 Week Disposition Disposition (needs filled in before D/C Order can be placed): Home, Self Care
[2024-03-22 08:19] VITALS: BP 122/93; PULSE 75; RESP 16; TEMP 36.4; O2SAT 100
--- NOTE | 2024-03-22 11:57 | DS.PCM_ITS ---
Providers Date of Admission: 03/20/24 Primary Care Physician: VALDEZ Loo Consultations 03/20/24 13:07 Consult: Gastroenterology Routine Consulting Provider: Brannon Nelson Reason for Consult: ercp EMERGENT Consult: No MD Notified: Yes Date Notified: 03/20/24 Time Notified: 12:48 Method of Notification: ED Physician Initiated Reason For Visit: BILIARY OBSTRUCTION Diagnosis Discharge Diagnosis (1) Biliary obstruction: Status: Acute Code(s): K83.1 - Obstruction of bile duct Medications at Discharge Home Medications NK 03/20/24 Hospital Course Operations ERCP Procedures None Summary of Care Provided Minutes Spent on Discharge: 33 Hospital Course: Per HPI: ODALYS CHANCE, is a 43 M who presents to the hospital with abdominal pain since about Saturday. The very first episode of some discomfort was about 3 weeks ago. He does not think that food makes it any better or worse but he presented to the hospital because he noticed that his eyes were yellow and that his urine was darker. In the ER he had a CT of the abdomen and pelvis which shows a dislodged common bile duct stent. This is likely from his cholecystectomy and ERCP in 2021, it appears that this may have gotten clogged as he now has a common bile duct dilatation. I have given a dose of antibiotics and started IV fluids in the ER. Total bilirubin is elevated to over 9 with a bump in his LFTs. He is afebrile without a leukocytosis. Hospital Course: 1. Biliary obstruction secondary to common bile duct stent?43-year-old male who had a cholecystectomy 2 years ago with a stent placed presents to the hospital with biliary obstruction. It does appear that he did not follow-up with gastroenterology as an outpatient last time and the stent has remained in place. It had been dislodged into the third portion of the duodenum but on ERCP was a lso found that he did have a biliary duct stone. The stent was removed and the duct was swept and his bilirubin has gone from 9.7 on the day of admission to 4 on the day of discharge. He denies any abdominal pain and tolerated the diet. I discussed with him the possibility for discharge today and he expressed understanding of the risk and benefits of going home and would like to go home today. I recommend that he follow-up with his PCP in 3 to 5 days. Physical Exam Narrative General: Alert, Oriented x3, Cooperative, No apparent distress HEENT: Atraumatic, PERRLA, EOMI, Normocephalic, scleral icterus Oral: Moist Mucosa Neck: Supple, No JVD Lungs: Clear to auscultation, Normal air movement, No rhonchi, No wheeze, No rales Cardiovascular: Regular rate, Regular Rhythm, Normal S1, Normal S2, No murmurs Abdomen: Soft, minimal right upper quadrant abdominal pain to palpation, Non- Distended, No Hepato-splenomegaly Extremities: No edema, Capillary Refill Less than 3 Seconds Skin: No rashes, No breakdown, jaundice Musculoskeletal: No Tenderness to Palpation of Joints or Extremities Neurological: No focal neurological deficits, Motor Exam 5/5 strength throughout, Sensory exam intact to light touch and pain Psych/Mental Status: Normal Affect, Appropriate Weight / BMI Weight Weight: 235 lb 6.307 oz Body Mass Index (BMI) 30.2 ABG / Lab / Microbiology Data 03/22/24 05:04 03/22/24 05:04 Laboratory: Laboratory Results - last 24 hr 03/22/24 05:04: WBC 5.6, RBC 4.74, Hgb 13.9, Hct 42.1, MCV 88.8, MCH 29.3, MCHC 33.0, RDW Std Deviation 42.0, RDW Coeff of Chan 12.9, Plt Count 189, MPV 10.3, Immature Gran % (Auto) 0.500, Neut % (Auto) 49.1, Lymph % (Auto) 26.8, [place] % (Auto) 17.9 H, Eos % (Auto) 5.0, Baso % (Auto) 0.7, Absolute Neuts (auto) 2.7, Absolute Lymphs (auto) 1.50, Nucleated RBC % 0, Sodium 140, Potassium 4.1, Chloride 109 H, Carbon Dioxide 27.0, Anion Gap 4 L, BUN 7, Creatinine 0.81, Estim Creat Clear Calc 153.07, Est GFR (MDRD) Af Amer 133, Est GFR (MDRD) Non-Af 110, BUN/Creatinine Ratio 8.7 L, Glucose 88, Calcium 8.7, Total Bilirubin 4.00 H , AST 31, ALT 204 H, Alkaline Phosphatase 134 H, Total Protein 6.2 L, Albumin 2.8 L, Globulin 3.4, Albumin/Globulin Ratio 0.8 L Radiography Diagnostic Testing: Radiology Impression Endo Retro Cholangiopancreatogram 03/21/24 08:00 IMPRESSION: Fluoroscopy during ERCP with balloon extraction and sternotomy. Electronically Signed: Chiki Israel MD at 16:25 EDT , D/C Instructions Discharge Diet: No restrictions Call your doctor if you observe: Fever of 101 or Higher, Shortness of breath, Dizziness, Fainting spells, Swelling in the ankles, Chest pain and Increased palpitations (irregular heartbeat) Meaningful Use Info Meaningful Use Meaningful Use Diagnoses (Choose all that apply): None applicable Ischemic Stroke Statin Dosing Therapy Reference: STATIN DOSE THERAPY REFERENCE: * Patients > 75 years receive moderate or high dose statin therapy. * Patients 75 years or YOUNGER should receive HIGH intensity statin dose unless contraindicated. You will be required to document reason for non-treatment if statin daily dose does not meet guidelines. HIGH DOSE STATIN THERAPY DAILY Atorvastatin > than or = to 40 mg Rosuvastatin > than or = to 20 mg Amlodipine + Atorvastatin > than or = to 2.5/40 mg Ezetimibe + Simvastatin 10/80 mg Simvastatin 80mg Discharge Plan Admission Admit Date/Time: 03/20/24 12:46 Attending Provider: Thom Abraham Primary Care Provider: Jessica Ricardo NP Discharge Orders/Prescriptions Prescriptions: No Action NK Referrals / Follow Up: Jessica Ricardo NP, WATER RECLAMATION SYSTEMS OPERATOR-C [Primary Care Provider] - Within 1 Week Disposition Disposition (needs filled in before D/C Order can be placed): Home, Self Care Charges/Coding Visit Charges Inpatient E&M: 61345 Disch Hosp >30min
== END 2024-03-22 08:17 | disposition home or self-care (01) | DRG 920 ==
LOC: ED 12:20 → MS3 12:52
PROVIDERS: Internal Medicine Gastroenterology; Admitting Provider Family Medicine; Emergency Provider Emergency Medicine; PCP Nurse Practitioner; Visit Provider Family Medicine
PROC: 0FC98ZZ Extirpation of Matter from Common Bile Duct, Via Natural or Artificial Opening Endoscopic (ICD-10-PCS; CPT 43260; principal; 2024-03-21 13:45)
DX: T85.520A Displacement of bile duct prosthesis, initial encounter (principal); K80.51 Calculus of bile duct without cholangitis or cholecystitis with obstruction; Z87.891 Personal history of nicotine dependence; Y73.2 Prosthetic and other implants, materials and accessory gastroenterology and urology devices associated with adverse incidents
CPT/HCPCS: 36415; 74177; 74330; 76000; 80048; 80053; 80076; 83690; 85025; 93005; 99284; J7030; J7040; J7120; Q9967; C1769; J2405